=== PATIENT | female | born 1945 | race Caucasian/White ===

== ENCOUNTER → 2018-05-01 | Outpatient (CLI) | payer MEDICARE, OTHER ==
--- NOTE | 2018-05-01 16:43 | BD ---
EXAMINATION TYPE: Axial Bone Density DATE OF EXAM: 05/01/2018 CLINICAL HISTORY: Height: 60.5 Weight: 267 FRAX RISK QUESTIONS: Alcohol (3 or more units per day): no Family History (Parent hip fracture): yes, father Glucocorticoids (More than 3mos): no (Ex: prednisone, prednisolone, methylprednisolone, dexamethasone, and hydrocortisone). History of Fracture in Adulthood: no Secondary Osteoporosis: 1. Type 1 Diabetes: yes 2. Hyperthyroidism: no 3. Menopause before 45: no 4. Malnutrition: no 5. Chronic liver disease: no Rheumatoid Arthritis: no Current Tobacco Use: no RISK FACTORS HISTORY OF: Family History of Osteoporosis: unsure Active: yes Diet low in dairy products/other sources of calcium: about at least one serving a day Postmenopausal woman: yes Take estrogen and/or progesterone medications: no Lost more than 2 inches in height since high school: no Frequent falls: no Poor Health: no Hyperparathyroidism: no Adrenal Insufficiency: no MEDICATIONS: Prednisone or other steroids: no Thyroid Medications: yes Which medication: Levothyroxine How Long: since 2011 Osteoporosis Medications: no Additional Medications: insulin & oral diabetic med.(Actos generic), Vit D, calcium, cholesterol med, blood pressure med Additional History: endometrial CA; thyroid removed due to thyroid CA EXAM MEASUREMENTS: Bone mineral densitometry was performed using the [employer] System. Bone mineral density as measured about the Lumbar spine is: ----- L1-L4(G/cm2): 1.171 T Score Values are as follows: ----- L2: -0.2 ----- L3: 0.0 ----- L4: 0.1 ----- L1-L4: -0.1 Bone mineral density has: Decreased -2.5% since study of: 01/11/2015 Bone mineral density about the R hip (g/cm2): 0.729 Bone mineral density about the L hip (g/cm2): 0.645 T Score values are as follows: -----R Neck: -2.2 -----L Neck: -2.8 -----R Total: -1.7 -----L Total: -1.8 Bone mineral density has: decreased -10.4% since study of: 01/11/2015 IMPRESSION: Osteoporosis (T Score less than -2.5). There is increased fracture risk and therapy is usually indicated based on age. Re-Screen 1-2 years. NOTE: T-SCORE=SD OF THE YOUNG ADULT MEAN.
--- NOTE | 2018-05-04 11:45 | MM ---
Reason for exam: screening (asymptomatic). Last mammogram was performed 1 year and 1 month ago. History: Patient is postmenopausal, has history of other cancer at age 65, and has history of endometrial cancer at age 56. MG 3D Screening Mammo W/Cad Bilateral CC and MLO view(s) were taken. LM view(s) were taken of the left breast. Prior study comparison: March 23, 2017, bilateral MG 3d screening mammo w/cad. February 17, 2016, bilateral MG screening mammo w CAD. There are scattered fibroglandular densities. Left breast lower inner quadrant focal asymmetry appears similar to priors. ASSESSMENT: Benign, BI-RAD 2 RECOMMENDATION: Routine screening mammogram of both breasts in 1 year.
== END | disposition home or self-care (01) ==
LOC: RADMAMWWP 13:53
PROVIDERS: ATTEND Obstetrics & Gynecology
DX: Z12.31 Encounter for screening mammogram for malignant neoplasm of breast (principal); M81.0 Age-related osteoporosis without current pathological fracture
CPT/HCPCS: 77063; 77067; 77080

== ENCOUNTER → 2019-05-30 | Outpatient (CLI) | payer MEDICARE, OTHER ==
--- NOTE | 2019-06-03 09:11 | MM ---
Reason for exam: screening (asymptomatic). Last mammogram was performed 1 year and 1 month ago. History: Patient is postmenopausal, has history of other cancer at age 65, and has history of endometrial cancer at age 56. Physical Findings: A clinical breast exam by your physician is recommended on an annual basis and results should be correlated with mammographic findings. MG 3D Screening Mammo W/Cad Bilateral CC and MLO view(s) were taken. Prior study comparison: May 01, 2018, bilateral MG 3d screening mammo w/cad. March 23, 2017, bilateral MG 3d screening mammo w/cad. There are scattered fibroglandular densities. There is chronic nodularity in the left breast. No significant changes when compared with prior studies. ASSESSMENT: Negative, BI-RAD 1 RECOMMENDATION: Routine screening mammogram of both breasts in 1 year.
== END | disposition home or self-care (01) ==
LOC: RADMAMWWP 16:31
PROVIDERS: ATTEND Obstetrics & Gynecology
DX: Z12.31 Encounter for screening mammogram for malignant neoplasm of breast (principal)
CPT/HCPCS: 77063; 77067

== ENCOUNTER → 2020-07-07 | Outpatient (CLI) | payer MEDICARE, OTHER ==
--- NOTE | 2020-07-08 09:26 | MM ---
Reason for exam: screening (asymptomatic). Last mammogram was performed 1 year and 1 month ago. History: Patient is postmenopausal, has history of other cancer at age 65, and has history of endometrial cancer at age 56. Physical Findings: A clinical breast exam by your physician is recommended on an annual basis and results should be correlated with mammographic findings. MG 3D Screening Mammo W/Cad Bilateral CC and MLO view(s) were taken. Prior study comparison: May 30, 2019, bilateral MG 3d screening mammo w/cad. May 01, 2018, bilateral MG 3d screening mammo w/cad. The breast tissue is heterogeneously dense. This may lower the sensitivity of mammography. No suspicious calcifications are seen. Left breast nodule inner lower quadrant zone B. ASSESSMENT: Incomplete: need additional imaging evaluation, BI-RAD 0 RECOMMENDATION: Special view mammogram and ultrasound of the left breast. [facility] will attempt to contact patient to return for supplemental views and ultrasound.
== END | disposition home or self-care (01) ==
LOC: RADMAMWWP 10:55
PROVIDERS: ATTEND Obstetrics & Gynecology
DX: Z12.31 Encounter for screening mammogram for malignant neoplasm of breast (principal)
CPT/HCPCS: 77063; 77067

== ENCOUNTER → 2020-08-31 | Outpatient (CLI) | payer MEDICARE ==
--- NOTE | 2020-08-31 11:52 | MM ---
Reason for exam: additional evaluation requested from abnormal screening. Last mammogram was performed 2 months ago. History: Patient is postmenopausal, has history of other cancer at age 65, and has history of endometrial cancer at age 56. Physical Findings: Nurse did not find any significant physical abnormalities on exam. MG 3D Work Up W/Cad LT Spot compression CC, spot compression MLO, and LM view(s) were taken of the left breast. Prior study comparison: July 07, 2020, bilateral MG 3d screening mammo w/cad. May 30, 2019, bilateral MG 3d screening mammo w/cad. There are scattered fibroglandular densities. Left 9mm nodule 10 o'clock 3.5cm from nipple. These results were verbally communicated with the patient and result sheet given to the patient on 08/31/20. ASSESSMENT: Incomplete: need additional imaging evaluation, BI-RAD 0 RECOMMENDATION: Ultrasound of the left breast.
--- NOTE | 2020-08-31 11:54 | USB ---
Reason for exam: additional evaluation requested from abnormal screening. History: Patient is postmenopausal, has history of other cancer at age 65, and has history of endometrial cancer at age 56. US Breast Workup Limited LT Technologist: Carly Armas Left limited breast ultrasound including focal area of concern, retroareolar and axilla demonstrates a 0.7 x 0.7 x 0.7cm cystic lesion with internal echoes at 10 o'clock. 7mm complex cyst. Follow up in 6 months. These results were verbally communicated with the patient and result sheet given to the patient on 08/31/20. ASSESSMENT: Probably benign, BI-RAD 3 RECOMMENDATION: Follow-up diagnostic mammogram and ultrasound of the left breast in 6 months.
== END | disposition home or self-care (01) ==
LOC: RADMAMWWP 10:17
PROVIDERS: ATTEND Obstetrics & Gynecology
DX: N64.89 Other specified disorders of breast (principal); N63.22 Unspecified lump in the left breast, upper inner quadrant; N60.02 Solitary cyst of left breast; Z78.0 Asymptomatic menopausal state
CPT/HCPCS: 77065; 76642; G0279; 77061

== ENCOUNTER → 2020-09-14 | Outpatient (CLI) | payer MEDICARE ==
--- NOTE | 2020-09-15 07:54 | BD ---
EXAMINATION TYPE: Axial Bone Density DATE OF EXAM: 09/14/2020 COMPARISON: DEXA bone scan May 01, 2018 CLINICAL HISTORY: Postmenopausal female. Known osteoporosis. Height: 61 Weight: 269.4 FRAX RISK QUESTIONS: Alcohol (3 or more units per day): no Family History (Parent hip fracture): yes Glucocorticoids (More than 3mos): no (Ex: prednisone, prednisolone, methylprednisolone, dexamethasone, and hydrocortisone). History of Fracture in Adulthood: no Secondary Osteoporosis: 1. Type 1 Diabetes: no 2. Hyperthyroidism: no 3. Menopause before 45: no 4. Malnutrition: no 5. Chronic liver disease: no Rheumatoid Arthritis: no Current Tobacco Use: no RISK FACTORS HISTORY OF: Surgery to Spine/Hip(right/left)/Wrist (right/left): no Family History of Osteoporosis: no Active: no Diet low in dairy products/other sources of calcium: yes Postmenopausal woman: yes Lost more than 2 inches in height since high school: no MEDICATIONS: diabetic meds, Thyroid Medications: thyroid How Lon years Additional History: EXAM MEASUREMENTS: Bone mineral densitometry was performed using the [employer]ppler System. Bone mineral density as measured about the Lumbar spine is: ----- L1-L4(G/cm2): 1.184 T Score Values are as follows: ----- L2: -0.4 ----- L3: -0.1 ----- L4: 1.1 ----- L1-L4: 0.0 Bone mineral density has: increased 2.9 % since study of: 05.01.2018 Bone mineral density about the R hip (g/cm2): 0.690 Bone mineral density about the L hip (g/cm2): 0.686 T Score values are as follows: -----R Neck: -2.5 -----L Neck: -2.5 -----R Total: -1.9 -----L Total: -1.7 Bone mineral density has: decreased -1.3 % since study of: 05.01.2018 IMPRESSION: Osteopenia (T Score between -2.5 and -1) is now present. There is slightly increased risk of fracture and the patient may be considered for treatment. Re-Screen 2-5 years. NOTE: T-SCORE=SD OF THE YOUNG ADULT MEAN.
== END | disposition home or self-care (01) ==
LOC: RADBDWWP 11:14
PROVIDERS: ATTEND Obstetrics & Gynecology
DX: Z13.820 Encounter for screening for osteoporosis (principal); M85.89 Other specified disorders of bone density and structure, multiple sites; Z78.0 Asymptomatic menopausal state; Z79.84 Long term (current) use of oral hypoglycemic drugs
CPT/HCPCS: 77080

== ENCOUNTER → 2021-04-07 | Outpatient (CLI) | payer MEDICARE ==
--- NOTE | 2021-04-11 10:29 | MM ---
Reason for exam: follow-up at short interval from prior study. Last mammogram was performed 7 months ago. History: Patient is postmenopausal, has history of other cancer at age 65, and has history of endometrial cancer at age 56. Physical Findings: Nurse did not find any significant physical abnormalities on exam. MG 3D Diag Mammo W/Cad LT CC, MLO, LM, and spot compression MLO view(s) were taken of the left breast. Prior study comparison: August 31, 2020, left breast MG 3d work up w/cad LT. July 07, 2020, bilateral MG 3d screening mammo w/cad. May 30, 2019, bilateral MG 3d screening mammo w/cad. May 01, 2018, bilateral MG 3d screening mammo w/cad. March 23, 2017, bilateral MG 3d screening mammo w/cad. Stable 8mm circumscribed isodense mass 10 o'clock left breast. No significant new findings when compared with previous films. These results were verbally communicated with the patient and result sheet given to the patient on 04/07/21. ASSESSMENT: Incomplete: need additional imaging evaluation, BI-RAD 0 RECOMMENDATION: Ultrasound of the left breast. (10 o'clock)
--- NOTE | 2021-04-11 10:31 | USB ---
Reason for exam: additional evaluation requested from abnormal screening. History: Patient is postmenopausal, has history of other cancer at age 65, and has history of endometrial cancer at age 56. US Breast LT Left limited breast ultrasound including focal area of concern, retroareolar and axilla demonstrates a 0.7 x 0.6 x 0.6cm lesion at 10 o'clock, size is stable. Appears more cystic but interval echoes are redemonstrated. Stable for 6 months, additional follow up recommended. These results were verbally communicated with the patient and result sheet given to the patient on 04/07/21. ASSESSMENT: Probably benign, BI-RAD 3 RECOMMENDATION: Follow-up diagnostic mammogram of both breasts in 3 months. Back on schedule for June 2021.
== END | disposition home or self-care (01) ==
LOC: RADMAMWWP 14:07
PROVIDERS: ATTEND Family Medicine
DX: R92.8 Other abnormal and inconclusive findings on diagnostic imaging of breast (principal)
CPT/HCPCS: 77065; 76641; G0279; 77061

== ENCOUNTER → 2021-09-14 | Outpatient (CLI) | payer MEDICARE ==
--- NOTE | 2021-09-14 13:32 | US ---
EXAMINATION TYPE: US kidneys/renal and bladder DATE OF EXAM: 09/14/2021 COMPARISON: NONE CLINICAL HISTORY: N18.30 CHRONIC KIDENY DISEASE, STAGE 3 UNSPECIFIED. CKD. EXAM MEASUREMENTS: Right Kidney: 10.8 x 4.8 x 4.9 cm Left Kidney: 11.4 x 5.2 x 4.8 cm Exam is limited due to body habitus and gas. Right Kidney: Cortex appears thin. Left Kidney: Hypoechoic area seen surrounding/ adjacent to the kidney shown by arrows. Cortex appea rs thin. Bladder: Not fully distended, limited evaluation. Bilateral Jets seen: Yes IMPRESSION: 1. Bilateral renal cortical thinning compatible with chronic medical renal disease. Small amount of f luid in the subcapsular space of the left kidney is suggested and could be correlated with CT scan as clinically warranted.
[2021-09-14 18:06] LABS: African American GFR (CKD) 45.7 (60.0-200.0); Albumin 3.8 g/dL (3.8-4.9); Albumin/Globulin Ratio 1.29 (1.60-3.17); BUN/Creat Ratio 17.02 Ratio (12.00-20.00); Blood Urea Nitrogen 22.3 mg/dL (9.0-27.0); Calcium 9.3 mg/dL (8.7-10.3); Carbon Dioxide 25.6 mmol/L (20.0-27.5); Globulin 2.9 g/dL (1.6-3.3); Non-African American GFR(CKD) 39.5 (60.0-200.0); Phosphorus 3.7 mg/dL (2.4-5.1); Potassium 5.4 mmol/L (3.5-5.5); Total Bilirubin 0.5 mg/dL (0.30-1.20); Total Protein 6.7 g/dL (6.2-8.2)
[2021-09-14 18:11] LABS: HCT 39.3 % (37.2-46.3); HGB 11.2 g/dL (12.0-15.0); MCH 24.1 pg (27.0-32.0); MCHC 28.5 g/dL (32.0-37.0); MCV 84.5 fL (80.0-97.0); Mean Platelet Volume 10.8 fL (9.5-12.2); NRBC Per 100 WBC 0 /100 WBCS (0.0-0.0); Platelet Count 204 X 10*3/uL (140-440); RBC 4.65 X 10*6/uL (4.10-5.20); RDW 17.1 % (11.5-14.5); WBC 7.45 X 10*3/uL (4.50-10.00)
== END | disposition home or self-care (01) ==
LOC: RADUSWWP 12:40
PROVIDERS: ATTEND Family Medicine
DX: N18.30 Chronic kidney disease, stage 3 unspecified (principal)
CPT/HCPCS: 76770; 80053; 84100; 85027

== ENCOUNTER → 2022-07-21 | Outpatient (CLI) | payer MEDICARE ==
--- NOTE | 2022-07-24 15:32 | MM ---
Reason for Exam: Screening (asymptomatic). Last screening mammogram was performed 12 month(s) ago. Patient History: Menarche at age 10. First Full-Term at age 24. Left ovary removed at age 56. Right ovary removed at age 56. Hysterectomy at age 56. Postmenopausal. Endometrial cancer, age 56. Other cancer, age 65. Risk Values: Mar[place]ell 5 year model risk: 1.7%. NCI Lifetime model risk: 3.3%. Prior Study Comparison: 08/31/2020 Left Diagnostic Mammogram, [facility]. 04/07/2021 Left Diagnostic Mammogram, [facility]. 07/20/2021 Bilateral Diagnostic Mammogram, [facility]. Tissue Density: There are scattered fibroglandular densities. Findings: Analyzed By CAD. There is no suspicious group of microcalcifications or new suspicious mass in either breast. Overall Assessment: Negative, BI-RAD 1 Management: Screening Mammogram of both breasts in 1 year. A clinical breast exam by your physician is recommended on an annual basis and results should be correlated with mammographic findings. Electronically signed and approved by: Austin Rivas M.D. Radiologis
== END | disposition home or self-care (01) ==
LOC: RADMAMWWP 13:07
PROVIDERS: ATTEND Obstetrics & Gynecology
DX: Z12.31 Encounter for screening mammogram for malignant neoplasm of breast (principal); Z78.0 Asymptomatic menopausal state
CPT/HCPCS: 77063; 77067

== ENCOUNTER 2023-04-19 10:45 | Inpatient (IN) | payer MEDICARE ==
--- NOTE | 2023-04-19 11:13 | ED ---
SOB HPI - General Stated Complaint: sob Time Seen by Provider: 04/19/23 11:13 - History of Present Illness Initial Comments: The patient's a 78-year-old female with history of hypertension and hyperlipidemia who presents emergency room a completely cough or shortness breath for the last 4 days. Patient states that she has rib pain with coughing and becomes extremely short of breath with immunization. Her is being seen for similar symptoms. She denies any hemoptysis. Patient is a nonsmoker denies any history of asthma or COPD. patient has missed multiple doses of her home medications over the last few days. Patient is hypoxic at 88% on room air in triage. She denies chest pain or hemoptysis. - Related Data Home Medications Medication Instructions Recorded Confirmed Meclizine [Antivert] 12.5 mg PO Q6H PRN 04/08/15 04/19/23 [place]-3 Fatty Acids/Fish Oil [Fish 2 cap PO HS 04/08/15 04/19/23 Oil 1,000 mg Softgel] Omeprazole [PriLOSEC] 20 mg PO DAILY 04/08/15 04/19/23 glipiZIDE [Glucotrol] 2.5 mg PO BID 04/08/15 04/19/23 Calcium Carbonate [Calcium] 600 mg PO HS 04/19/23 04/19/23 Cranberry Fruit Concentrate [Azo 500 mg PO HS 04/19/23 04/19/23 Cranberry] Ezetimibe [Zetia] 10 mg PO DAILY 04/19/23 04/19/23 Insulin Glargine,Hum.rec.anlog 20 units SQ HS 04/19/23 04/19/23 [Lantus Solostar Pen] Levothyroxine Sodium [Synthroid] 112 mcg PO DAILY 04/19/23 04/19/23 Liothyronine Sodium [Cytomel] 5 mcg PO DAILY 04/19/23 04/19/23 Pioglitazone [Actos] 15 mg PO DAILY 04/19/23 04/19/23 lisinopriL [Zestril] 5 mg PO DAILY 04/19/23 04/19/23 Allergies Allergy/AdvReac Type Severity Reaction Status Date / Time cholecalciferol (vitamin D3) Allergy Unknown Verified 04/19/23 16:49 [From Vitamin D3] midazolam HCl [From Versed] Allergy Unknown Verified 04/19/23 16:49 exenatide [From [place]etta] AdvReac shaking Verified 04/19/23 16:49 phenazopyridine HCl AdvReac Nausea Verified 04/19/23 16:49 [From Pyridium] pioglitazone HCl [From Actos] AdvReac Nausea Verified 04/19/23 16:49 sitagliptin phosphate AdvReac high blood Verified 04/19/23 16:49 [From Januvia] pressure sulfamethoxazole AdvReac Nausea Verified 04/19/23 16:49 [From Bactrim] trimethoprim [From Bactrim] AdvReac Nausea Verified 04/19/23 16:49 Review of Systems ROS Statement: Those systems with pertinent positive or pertinent negative responses have been documented in the HPI. ROS Other: All systems not noted in ROS Statement are negative. Past Medical History Past Medical History: Diabetes Mellitus, GERD/Reflux, Hypertension, Thyroid Disorder Additional Past Medical History / Comment(s): UTI History of Any Multi-Drug Resistant Organisms: None Reported Past Surgical History: Cholecystectomy, Hysterectomy Additional Past Surgical History / Comment(s): thyroidectomy Past Psychological History: No Psychological Hx Reported Past Alcohol Use History: None Reported Past Drug Use History: None Reported General Exam - General Exam Comments Initial Comments: Visual Physical Exam Vital signs reviewed General: Well-appearing, nontoxic, no acute distress. Head: Normocephalic, atraumatic Eyes: PERRLA, EOMI ENT: Airway patent a congestion noted Chest: Nonlabored breathin . Skin: No visual rash, normal skin tone Neuro: Alert and oriented 3 Musculoskeletal: No gross abnormalities Limitations: no limitations General appearance: alert, in no apparent distress Head exam: Present: atraumatic Eye exam: Present: normal appearance, PERRL ENT exam: Present: normal exam, normal oropharynx, mucous membranes moist Neck exam: Present: normal inspection, full ROM, other (No nuchal rigidity) Respiratory exam: Present: respiratory distress, wheezes Cardiovascular Exam: Present: regular rate, normal rhythm Extremities exam: Present: full ROM Back exam: Present: full ROM Neurological exam: Present: alert, oriented X3, CN II-XII intact Psychiatric exam: Present: normal affect, normal mood Skin exam: Present: warm, dry Course Vital Signs 04/19/23 04/19/23 04/19/23 12:27 14:50 15:01 Temperature Pulse Rate 88 88 85 Respiratory 20 22 Rate Blood Pressure 205/79 183/71 O2 Sat by Pulse 89 L 100 Oximetry 04/19/23 04/19/23 15:12 18:28 Temperature 98.8 F Pulse Rate 89 100 Respiratory 24 Rate Blood Pressure 164/71 O2 Sat by Pulse 93 L Oximetry - Reevaluation(s) Reevaluation #1: 04/19/23 1640 Patient received albuterol DuoNeb treatment in the emergency room as well as Decadron. After breathing treatments and monitoring the patient was taken off it the nasal cannula. At that time she slowly decreased to 89% on room air while sitting in the stretcher. I discussed admission plan at that time with the patient for further breathing treatments and steroids. She agrees to this plan. I discussed patient's symptoms are And management with attending ED physician Dr. Shane today. Medical Decision Making - Medical Decision Making Quick note portion completed by myself, Leela Arevalo PAC. Was pt. sent in by a medical professional or institution (, PA, CURING FINISHER, urgent care, hospital, or alf...) When possible be specific @ -[No] Did you speak to anyone other than the patient for history (EMS, parent, family, police, friend...)? What history was obtained from this source @ -Daughter and family members at the bedside including Did you review nursing and triage notes (agree or disagree)? Why? @ -[I reviewed and agree with nursing and triage notes] Were old charts reviewed (outside hosp., previous admission, EMS record, old EKG, old radiological studies, urgent care reports/EKG's, alf records)? Report findings @ -[No old charts were reviewed] Differential Diagnosis (chest pain, altered mental status, abdominal pain women, abdominal pain men, vaginal bleeding, weakness, fever, dyspnea, syncope, headache, dizziness, GI bleed, back pain, seizure, CVA, palpatations, mental health, musculoskeletal)? @ -COVID-19, influenza, RSV, pneumonia, URI, CHF EKG interpreted by me (3pts min.). @ -Shows possible A. fib versus PACs rate of 84 bpm, poor EKG, no acute ST segment elevation X-rays interpreted by me (1pt min.). @ -Chest x-ray is negative for any pneumonia pneumothorax or other acute changes. CT interpreted by me (1pt min.). @ -[None done] U/S interpreted by me (1pt. min.). @ -[None done] What testing was considered but not performed or refused? (CT, X-rays, U/S, labs)? Why? @ -[None] What meds were considered but not given or refused? Why? @ -[None] Did you discuss the management of the patient with other professionals (professionals i.e. DrBrooklynn, PA, CURING FINISHER, lab, RT, psych nurse, social human services assistants, unit educator, teacher, budget officer, pillowcase maker)? Give summary @ -[No] Was smoking cessation discussed for >3mins.? @ -[No] Was critical care preformed (if so, how long)? @ -[No] Were there social determinants of health that impacted care today? How? (Homelessness, low income, unemployed, alcoholism, drug addiction, transportation, low edu. Level, literacy, decrease access to med. care, halfway, rehab)? @ -[No] Was there de-escalation of care discussed even if they declined (Discuss DNR or withdrawal of care, Hospice)? DNR status @ -[No] What co-morbidities impacted this encounter? (DM, HTN, Smoking, COPD, CAD, Cancer, CVA, ARF, Chemo, Hep., AIDS, mental health diagnosis, sleep apnea, morbid obesity)? @ -[None] Was patient admitted / discharged? Hospital course, mention meds given and route, prescriptions, significant lab abnormalities, going to OR and other pertinent info. @Patient remained hypoxic after multiple breathing treatments and steroids. She will be admitted for further treatment and observation for the hypoxia and RSV. Undiagnosed new problem with uncertain prognosis? @ -[No] Drug Therapy requiring intensive monitoring for toxicity (Heparin, Nitro, Insulin, Cardizem)? @ -[No] Were any procedures done? @ -[No] Diagnosis/symptom? @ -RSV, hypoxia Acute, or Chronic, or Acute on Chronic? @ -[Acute Uncomplicated (without systemic symptoms) or Complicated (systemic symptoms)? @ -[default] Side effects of treatment? @ -[No] Exacerbation, Progression, or Severe Exacerbation? @ -[No] Poses a threat to life or bodily function? How? (Chest pain, USA, PA, pneumonia, PE, COPD, DKA, ARF, appy, cholecystitis, CVA, Diverticulitis, Homicidal, Suicidal, threat to staff... and all critical care pts) @ -yes - Lab Data Result diagrams: 04/19/23 13:56 04/19/23 13:56 Lab Results 04/19/23 04/19/23 04/19/23 Range/Units 12:33 12:33 13:56 WBC 9.6 (3.8-10.6) k/uL RBC 4.58 (3.80-5.40) m/uL Hgb 12.2 (11.4-16.0) gm/dL Hct 38.7 (34.0-46.0) % MCV 84.5 (80.0-100.0) fL MCH 26.6 (25.0-35.0) pg MCHC 31.4 (31.0-37.0) g/dL RDW 17.1 H (11.5-15.5) % Plt Count 191 (150-450) k/uL MPV 8.1 Neutrophils % 86 % Lymphocytes % 6 % Monocytes % 4 % Eosinophils % 0 % Basophils % 0 % Neutrophils # 8.3 H (1.3-7.7) k/uL Lymphocytes # 0.6 L (1.0-4.8) k/uL Monocytes # 0.4 (0-1.0) k/uL Eosinophils # 0.0 (0-0.7) k/uL Basophils # 0.0 (0-0.2) k/uL Hypochromasia Marked Anisocytosis Slight Sodium (137-145) mmol/L Potassium (3.5-5.1) mmol/L Chloride (98-107) mmol/L Carbon Dioxide (22-30) mmol/L Anion Gap mmol/L BUN (7-17) mg/dL Creatinine (0.52-1.04) mg/dL Est GFR (CKD-EPI)AfAm (>60 ml/min/1.73 sqM) Est GFR (CKD-EPI)NonAf (>60 ml/min/1.73 sqM) Glucose (74-99) mg/dL Calcium (8.4-10.2) mg/dL Total Bilirubin (0.2-1.3) mg/dL AST (14-36) U/L ALT (4-34) U/L Alkaline Phosphatase (38-126) U/L Troponin I (0.000-0.034) ng/mL NT-Pro-B Natriuret Pep pg/mL Total Protein (6.3-8.2) g/dL Albumin (3.5-5.0) g/dL Influenza Type A (PCR) Not Detected (Not Detectd) Influenza Type B (PCR) Not Detected (Not Detectd) RSV (PCR) Detected A (Not Detectd) SARS-CoV-2 (PCR) Not Detected (Not Detectd) Group A Strep (PCR) NOT DETECTED (Not Detectd) 04/19/23 04/19/23 04/19/23 Range/Units 13:56 13:56 13:56 WBC (3.8-10.6) k/uL RBC (3.80-5.40) m/uL Hgb (11.4-16.0) gm/dL Hct (34.0-46.0) % MCV (80.0-100.0) fL MCH (25.0-35.0) pg MCHC (31.0-37.0) g/dL RDW (11.5-15.5) % Plt Count (150-450) k/uL MPV Neutrophils % % Lymphocytes % % Monocytes % % Eosinophils % % Basophils % % Neutrophils # (1.3-7.7) k/uL Lymphocytes # (1.0-4.8) k/uL Monocytes # (0-1.0) k/uL Eosinophils # (0-0.7) k/uL Basophils # (0-0.2) k/uL Hypochromasia Anisocytosis Sodium 138 (137-145) mmol/L Potassium 4.6 (3.5-5.1) mmol/L Chloride 102 (98-107) mmol/L Carbon Dioxide 23 (22-30) mmol/L Anion Gap 13 mmol/L BUN 19 H (7-17) mg/dL Creatinine 1.07 H (0.52-1.04) mg/dL Est GFR (CKD-EPI)AfAm 58 (>60 ml/min/1.73 sqM) Est GFR (CKD-EPI)NonAf 50 (>60 ml/min/1.73 sqM) Glucose 135 H (74-99) mg/dL Calcium 9.3 (8.4-10.2) mg/dL Total Bilirubin 1.1 (0.2-1.3) mg/dL AST 28 (14-36) U/L ALT 16 (4-34) U/L Alkaline Phosphatase 103 (38-126) U/L Troponin I 0.019 (0.000-0.034) ng/mL NT-Pro-B Natriuret Pep 4820 pg/mL Total Protein 7.6 (6.3-8.2) g/dL Albumin 4.2 (3.5-5.0) g/dL Influenza Type A (PCR) (Not Detectd) Influenza Type B (PCR) (Not Detectd) RSV (PCR) (Not Detectd) SARS-CoV-2 (PCR) (Not Detectd) Group A Strep (PCR) (Not Detectd) - EKG Data -: EKG Interpreted by Me - Radiology Data Radiology results: report reviewed, image reviewed Disposition Clinical Impression: Hypoxia, RSV (respiratory syncytial virus infection) Disposition: ADMITTED IP TO THIS [facility] Condition: Fair Decision to Admit Reason: Admit from EC Decision Time: 16:47
--- NOTE | 2023-04-19 12:04 | XR ---
EXAMINATION TYPE: XR chest 2V DATE OF EXAM: 04/19/2023 COMPARISON: Shortness of breath HISTORY: Chest x-ray October 31, 2015 TECHNIQUE: Frontal and lateral views of the chest are obtained. FINDINGS: There is new Left midlung linear opacity. Right lung is clear. No pleural effusion or pneu mothorax is seen bilaterally. The cardiac silhouette size is stable and within normal limits. The osseous structures are intact. IMPRESSION: New left midlung linear opacity favoring atelectasis.
[2023-04-19] MEDS ORDERED: ALBUTEROL NEBULIZED 2.5 MG/3 ML INHALATION STA (13:34)
[2023-04-19] MEDS ORDERED: IPRATROPIUM-ALBUTEROL 3 ML NEB INHALATION STA (13:53)
[2023-04-19] MEDS ORDERED: DEXAMETHASONE SOD PHOSPHATE 10 MG/ML 1 ML VIAL IM STA (13:53)
[2023-04-19 14:10] LABS: Anisocytosis Slight; Basophils % (A) 0 %; Eosinophils % (A) 0 %; HCT 38.7 % (34.0-46.0); HGB 12.2 gm/dL (11.4-16.0); Hypochromasia Marked; Lymphocytes # (A) 0.6 k/uL (1.0-4.8); Lymphocytes % (A) 6 %; MCH 26.6 pg (25.0-35.0); MCHC 31.4 g/dL (31.0-37.0); MCV 84.5 fL (80.0-100.0); Mean Platelet Volume 8.1; Monocytes # (A) 0.4 k/uL (0-1.0); Monocytes % (A) 4 %; Neutrophils # (A) 8.3 k/uL (1.3-7.7); Neutrophils % (A) 86 %; Platelet Count 191 k/uL (150-450); RBC 4.58 m/uL (3.80-5.40); RDW 17.1 % (11.5-15.5); WBC 9.6 k/uL (3.8-10.6)
[2023-04-19 14:18] LABS: ALT 16 U/L (4-34); AST 28 U/L (14-36); African American GFR (CKD) 58 (>60 ml/min/1.73 sqM); Albumin 4.2 g/dL (3.5-5.0); Alkaline Phosphatase 103 U/L (38-126); Anion Gap 13 mmol/L; Blood Urea Nitrogen 19 mg/dL (7-17); Calcium 9.3 mg/dL (8.4-10.2); Carbon Dioxide 23 mmol/L (22-30); Chloride 102 mmol/L (98-107); Glucose 135 mg/dL (74-99); Non-African American GFR(CKD) 50 (>60 ml/min/1.73 sqM); Potassium 4.6 mmol/L (3.5-5.1); Sodium 138 mmol/L (137-145); Total Bilirubin 1.1 mg/dL (0.2-1.3); Total Protein 7.6 g/dL (6.3-8.2)
[2023-04-19] MEDS ORDERED: SODIUM CHLORIDE 0.9% 500 ML 500 ML IV STA (15:02)
[2023-04-19] MEDS ORDERED: NALOXONE 0.4 MG/ML 1 ML VIAL IV PRN (16:27)
[2023-04-19] MEDS ORDERED: ALBUTEROL NEBULIZED 2.5 MG/3 ML INHALATION SCH (16:45)
[2023-04-19] MEDS: SODIUM CHLORIDE 0.9% 1,000 ML IV SCH ×2 (17:15→23:44)
[2023-04-19] MEDS ORDERED: methylPREDNISolone SOD SUCCI 125 MG/2 ML VIAL IV SCH ×2 (18:00→21:00)
[2023-04-19] MEDS ORDERED: DEXTROSE 50% SYRINGE 50 ML IVP PRN ×2 (20:22)
--- NOTE | 2023-04-19 20:25 | P.HPIM ---
History of Present Illness H&P Date: 04/19/23 Chief Complaint: Short of breath This is a pleasant 78-year-old patient follows a Dr. Eaton. Chronic stable medical conditions include diabetes, GERD, hypertension, hypothyroid. For about 4 days patient has started having respiratory symptoms. Tired. Cough. Yellow sputum. No dizziness lightheadedness. No diarrhea. No obvious fever and chills. also had some dyspnea symptoms. Decided to come in. Pulse ox was 89% on room air upon presentation. Tired Sitting up in a chair. Review of systems: GEN.: Tired EYES: None HEENT: None NECK: None RESPIRATORY: As above CARDIOVASCULAR: None GASTROINTESTINAL: None GENITOURINARY: None MUSCULOSKELETAL: None LYMPHATICS: None HEMATOLOGICAL: None PSYCHIATRY: None NEUROLOGICAL: None Social history: No smoking and no alcohol. Lives with her and other family members. Physical examination: VITAL SIGNS: Afebrile, 88, 20, 183/71, 89% room air GENERAL: BMI 49.9, sitting up in chair awake slightly tired. EYES: Pupils equal. Conjunctiva normal. HEENT: External appearance of nose and ears normal, oral cavity grossly normal. NECK: JVD not raised; masses not palpable. HEART: First and second heart sounds are normal; no edema. LUNGS:[ Respiratory rate increased, decreased breath sounds. ABDOMEN: Soft, nontender, liver spleen not palpable, no masses palpable. PSYCH: Alert and oriented x3; mood and affect normal. MUSCULOSKELETAL:No Clubbing/cyanosis;muscles-grossly intact. OA NEUROLOGICAL: Cranial nerves grossly intact; no facial asymmetry, power and sensation grossly intact. LYMPHATICS: No lymph nodes palpable in the axilla and neck INVESTIGATIONS, reviewed in the clinical context: April 19: White count 9.6 hemoglobin 12.2 platelets 191 sodium 138 potassium 4.6 BUN 19 creatinine 1.07 Troponin I 0.019 proBNP 4820 RSV PCR: Detected EKG tracing personally reviewed by me-possibly wandering atrial pacemaker Chest x-ray film personally reviewed by me-no obvious infiltrate Assessment plan: -Acute RSV r infection causing possible pneumonitis, causing hypoxia -Acute hypoxic respiratory failure secondary to RSV infection Oxygen supplement -Morbid obesity BMI 49.9 Weight loss measures -GERD Prilosec -Diabetes mellitus type 2 on oral hypoglycemic Glucotrol 2.5 mg twice a day Actos Lantus 20 units subcu daily at bedtime Sliding scale with Accu-Chek -Hyperlipidemia Zetia -Essential hypertension Zestril 5 mg daily -full Code Past Medical History Past Medical History: Diabetes Mellitus, GERD/Reflux, Hypertension, Thyroid Dis order Additional Past Medical History / Comment(s): UTI History of Any Multi-Drug Resistant Organisms: None Reported Past Surgical History: Cholecystectomy, Hysterectomy Additional Past Surgical History / Comment(s): thyroidectomy Past Psychological History: No Psychological Hx Reported Past Alcohol Use History: None Reported Past Drug Use History: None Reported Medications and Allergies Home Medications Medication Instructions Recorded Confirmed Type Meclizine [Antivert] 12.5 mg PO Q6H PRN 04/08/15 04/19/23 History [place]-3 Fatty Acids/Fish Oil [Fish 2 cap PO HS 04/08/15 04/19/23 History Oil 1,000 mg Softgel] Omeprazole [PriLOSEC] 20 mg PO DAILY 04/08/15 04/19/23 History glipiZIDE [Glucotrol] 2.5 mg PO BID 04/08/15 04/19/23 History Calcium Carbonate [Calcium] 600 mg PO HS 04/19/23 04/19/23 History Cranberry Fruit Concentrate [Azo 500 mg PO HS 04/19/23 04/19/23 History Cranberry] Ezetimibe [Zetia] 10 mg PO DAILY 04/19/23 04/19/23 History Insulin Glargine,Hum.rec.anlog 20 units SQ HS 04/19/23 04/19/23 History [Lantus Solostar Pen] Levothyroxine Sodium [Synthroid] 112 mcg PO DAILY 04/19/23 04/19/23 History Liothyronine Sodium [Cytomel] 5 mcg PO DAILY 04/19/23 04/19/23 History Pioglitazone [Actos] 15 mg PO DAILY 04/19/23 04/19/23 History lisinopriL [Zestril] 5 mg PO DAILY 04/19/23 04/19/23 History Allergies Allergy/AdvReac Type Severity Reaction Status Date / Time cholecalciferol (vitamin D3) Allergy Unknown Verified 04/19/23 16:49 [From Vitamin D3] midazolam HCl [From Versed] Allergy Unknown Verified 04/19/23 16:49 exenatide [From [place]] AdvReac shaking Verified 04/19/23 16:49 phenazopyridine HCl AdvReac Nausea Verified 04/19/23 16:49 [From Pyridium] pioglitazone HCl [From Actos] AdvReac Nausea Verified 04/19/23 16:49 sitagliptin phosphate AdvReac high blood Verified 04/19/23 16:49 [From Januvia] pressure sulfamethoxazole AdvReac Nausea Verified 04/19/23 16:49 [From Bactrim] trimethoprim [From Bactrim] AdvReac Nausea Verified 04/19/23 16:49 Physical Exam Vitals: Vital Signs Temp Pulse Resp BP Pulse Ox 04/19/23 18:28 98.8 F 100 24 164/71 93 L 04/19/23 15:12 89 04/19/23 15:01 85 22 183/71 100 04/19/23 14:50 88 04/19/23 12:27 88 20 205/79 89 L Intake and Output 04/19/23 04/19/23 04/19/23 06:59 14:59 22:59 Other: Weight 119.748 kg Results CBC & Chem 7: 04/19/23 13:56 04/19/23 13:56 Labs: Abnormal Lab Results - Last 24 Hours (Table) 04/19/23 04/19/23 04/19/23 Range/Units 12:33 13:56 13:56 RDW 17.1 H (11.5-15.5) % Neutrophils # 8.3 H (1.3-7.7) k/uL Lymphocytes # 0.6 L (1.0-4.8) k/uL BUN 19 H (7-17) mg/dL Creatinine 1.07 H (0.52-1.04) mg/dL Glucose 135 H (74-99) mg/dL RSV (PCR) Detected A (Not Detectd)
[2023-04-19 20:52] LABS: Glucose,Whole Blood 318 mg/dL (70-110)
[2023-04-19] MEDS: IPRATROPIUM-ALBUTEROL 3 ML NEB INHALATION SCH (21:00)
[2023-04-19] MEDS: BUDESONIDE 1 MG/2 ML NEBU INHALATION SCH (21:00)
[2023-04-19] MEDS: CALCIUM CARBONATE 500 MG CHEWABLE PO SCH (21:19)
[2023-04-19] MEDS: INSULIN DETEMIR (LEVEMIR) 100 UNIT/ML SYR SQ SCH (21:20)
[2023-04-19] MEDS: ENOXAPARIN 40 MG/0.4 ML SYRINGE SQ SCH (21:20)
[2023-04-19] MEDS: methylPREDNISolone SOD SUCCI 40 MG/ML 1 ML VIAL IV SCH (23:44)
[2023-04-20] MEDS: IPRATROPIUM-ALBUTEROL 3 ML NEB INHALATION SCH ×6 (00:18→21:04)
[2023-04-20 05:19] LABS: Glucose,Whole Blood 235 mg/dL (70-110)
[2023-04-20] MEDS: LEVOTHYROXINE 112 MCG TAB PO SCH (06:26)
[2023-04-20] MEDS: INSULIN ASPART (NovoLOG) 100 UNIT/ML VIAL SQ SCH ×3 (06:26→18:07)
[2023-04-20] MEDS: PANTOPRAZOLE 40 MG TABLET PO SCH (06:26)
[2023-04-20] MEDS: SODIUM CHLORIDE 0.9% 1,000 ML IV SCH ×3 (06:26→23:36)
[2023-04-20] MEDS: BUDESONIDE 1 MG/2 ML NEBU INHALATION SCH ×2 (08:40→21:03)
[2023-04-20] MEDS: LIOTHYRONINE SODIUM 5 MCG TAB PO SCH (09:09)
[2023-04-20] MEDS: PIOGLITAZONE 15 MG TAB PO SCH (09:09)
[2023-04-20] MEDS: EZETIMIBE 10 MG TAB PO SCH (09:09)
[2023-04-20] MEDS: methylPREDNISolone SOD SUCCI 40 MG/ML 1 ML VIAL IV SCH ×3 (09:09→23:33)
[2023-04-20] MEDS: lisinopriL 5 MG TAB PO SCH (09:09)
[2023-04-20 10:54] LABS: HCT 36.7 % (37.2-46.3); MCH 25.9 pg (27.0-32.0); MCV 86.6 FL (80.0-97.0); Mean Platelet Volume 10.7 FL (9.5-12.2); NRBC Per 100 WBC 0 X 10*3/uL (0.00-0.01); Platelet Count 194 X 10*3/uL (140-440); RBC 4.24 X 10*6/uL (4.10-5.20); RDW 17.3 % (11.5-14.5); WBC 7.06 X 10*3/uL (4.50-10.00)
[2023-04-20 10:55] LABS: Basophils # (A) 0 X 10*3/uL (0.00-0.10); Basophils % (A) 0 %; Eosinophils # (A) 0 X 10*3/uL (0.04-0.35); Eosinophils % (A) 0 %; Lymphocytes # (A) 0.51 X 10*3/uL (0.90-5.00); Lymphocytes % (A) 7.2 %; Monocytes # (A) 0.26 X 10*3/uL (0.20-1.00); Monocytes % (A) 3.7 %; Neutrophils # (A) 6.25 X 10*3/uL (1.80-7.70); Neutrophils % (A) 88.5 %
[2023-04-20 11:04] LABS: BUN/Creat Ratio 18.92 Ratio (12.00-20.00); Blood Urea Nitrogen 24.6 mg/dL (9.0-27.0); Carbon Dioxide 18.9 mmol/L (21.6-31.8); Chloride 105 mmol/L (96-109); Glucose 255 mg/dL (70-110); Potassium 4.6 mmol/L (3.5-5.5); Sodium 138 mmol/L (135-145)
[2023-04-20 11:05] LABS: Glucose,Whole Blood 226 mg/dL (70-110)
--- NOTE | 2023-04-20 16:40 | P.PN ---
Progress Note - Text Progress Note Date: 04/20/23 Chief Complaint: Short of breath This is a pleasant 78-year-old patient follows a Dr. Eaton. Chronic stable medical conditions include diabetes, GERD, hypertension, hypothyroid. For about 4 days patient has started having respiratory symptoms. Tired. Cough. Yellow sputum. No dizziness lightheadedness. No diarrhea. No obvious fever and chills. also had some dyspnea symptoms. Decided to come in. Pulse ox was 89% on room air upon presentation. Tired Sitting up in a chair. 04/20/2023: Up in a chair. Some cough and shortness of breath. Some wheezing. Incentive spirometry. Have the patient ambulate in the room as tolerated. Active Medications Albuterol/Ipratropium (Ipratropium-Albuterol 3 Ml Neb) 3 ml INHALATION RT-Q4H [facility] Last Admin: 04/20/23 16:07 Dose: 3 ml Budesonide (Budesonide 1 Mg/2 Ml Nebu) 1 mg INHALATION RT-BID [facility] Last Admin: 04/20/23 08:40 Dose: 1 mg Calcium Carbonate/Glycine (Calcium Carbonate 500 Mg Chewable) 500 mg PO [facility] Last Admin: 04/19/23 21:19 Dose: 500 mg Dextrose/Water (Dextrose 50% Syringe 50 Ml) 25 ml IVP PER PROTOCOL PRN; Protocol PRN Reason: Hypoglycemia Dextrose/Water (Dextrose 50% Syringe 50 Ml) 50 ml IVP PER PROTOCOL PRN; Protocol PRN Reason: Hypoglycemia Ezetimibe (Ezetimibe 10 Mg Tab) 10 mg PO DAILY [facility] Last Admin: 04/20/23 09:09 Dose: 10 mg Enoxaparin Sodium (Enoxaparin 40 Mg/0.4 Ml Syringe) 40 mg SQ [facility] Last Admin: 04/19/23 21:20 Dose: 40 mg Glipizide (Glipizide 2.5 Mg Tab) 2.5 mg PO AC-BID [facility] Last Admin: 04/20/23 06:26 Dose: 2.5 mg Sodium Chloride (Saline 0.9%) 1,000 mls @ 130 mls/hr IV .Q7H42M [facility] Last Admin: 04/20/23 06:26 Dose: 130 mls/hr Insulin Aspart (Insulin Aspart (Novolog) 100 Unit/Ml Vial) 0 unit SQ AC-TID [facility]; Protocol Last Admin: 04/20/23 12:36 Dose: 4 unit Insulin Detemir (Insulin Detemir (Levemir) 100 Unit/Ml Syr) 20 unit SQ HS [facility] Last Admin: 04/19/23 21:20 Dose: 20 unit Levothyroxine Sodium (Levothyroxine 112 Mcg Tab) 112 mcg PO DAILY@0630 [facility] Last Admin: 04/20/23 06:26 Dose: 112 mcg Liothyronine Sodium (Liothyronine Sodium 5 Mcg Tab) 5 mcg PO DAILY [facility] Last Admin: 04/20/23 09:09 Dose: 5 mcg Lisinopril (Lisinopril 5 Mg Tab) 5 mg PO DAILY [facility] Last Admin: 04/20/23 09:09 Dose: 5 mg Methylprednisolone Sodium Succinate (Methylprednisolone Sod Succi 40 Mg/Ml 1 Ml Vial) 40 mg IV Q8HR [facility] Last Admin: 04/20/23 09:09 Dose: 40 mg Naloxone HCl (Naloxone 0.4 Mg/Ml 1 Ml Vial) 0.2 mg IV Q2M PRN PRN Reason: Opioid Reversal Pantoprazole Sodium (Pantoprazole 40 Mg Tablet) 40 mg PO AC-BRKFST [facility] Last Admin: 04/20/23 06:26 Dose: 40 mg Pioglitazone HCl (Pioglitazone 15 Mg Tab) 15 mg PO DAILY [facility] Last Admin: 04/20/23 09:09 Dose: 15 mg Social history: No smoking and no alcohol. Lives with her and other family members. Physical examination: VITAL SIGNS: 97.7, 77, 19, 144-73, 94% on 3 L GENERAL: Up in a chair, a bit tired EYES: Pupils equal. Conjunctiva normal. HEENT: External appearance of nose and ears normal, oral cavity grossly normal. NECK: JVD not raised; masses not palpable. HEART: First and second heart sounds are normal; no edema. LUNGS:[ Respiratory rate increased, decreased breath sounds. ABDOMEN: Soft, nontender, liver spleen not palpable, no masses palpable. PSYCH: Alert and oriented x3; mood and affect normal. MUSCULOSKELETAL:No Clubbing/cyanosis;muscles-grossly intact. OA INVESTIGATIONS, reviewed in the clinical context: 04/20/2023: White count 7.06 hemoglobin 11 platelets 194 potassium 4.6 BUN 24.6 creatinine 1.3 April 19: White count 9.6 hemoglobin 12.2 platelets 191 sodium 138 potassium 4.6 BUN 19 creatinine 1.07 Troponin I 0.019 proBNP 4820 RSV PCR: Detected EKG tracing personally reviewed by me-possibly wandering atrial pacemaker Chest x-ray film personally reviewed by me-no obvious infiltrate Assessment plan: -Acute RSV r infection causing possible pneumonitis, causing hypoxia -Secondary bronchospasm secondary to RSV infection and pneumonitis Bronchodilators. IV Solu-Medrol. -Acute hypoxic respiratory failure secondary to RSV infection Oxygen supplement -Morbid obesity BMI 49.9 Weight loss measures -GERD Prilosec -Diabetes mellitus type 2 on oral hypoglycemic Glucotrol 2.5 mg twice a day Actos Lantus 20 units subcu daily at bedtime Sliding scale with Accu-Chek -Hyperlipidemia Zetia -Essential hypertension Zestril 5 mg daily -full Code Past Medical History Past Medical History: Diabetes Mellitus, GERD/Reflux, Hypertension, Thyroid Disorder Additional Past Medical History / Comment(s): UTI History of Any Multi-Drug Resistant Organisms: None Reported Past Surgical History: Cholecystectomy, Hysterectomy Additional Past Surgical History / Comment(s): thyroidectomy Past Psychological History: No Psychological Hx Reported Past Alcohol Use History: None Reported Past Drug Use History: None Reported
[2023-04-20 16:49] LABS: Glucose,Whole Blood 329 mg/dL (70-110)
[2023-04-20 20:11] LABS: Glucose,Whole Blood 237 mg/dL (70-110)
[2023-04-20] MEDS: CALCIUM CARBONATE 500 MG CHEWABLE PO SCH (20:45)
[2023-04-20] MEDS: ENOXAPARIN 40 MG/0.4 ML SYRINGE SQ SCH (20:45)
[2023-04-20] MEDS: INSULIN DETEMIR (LEVEMIR) 100 UNIT/ML SYR SQ SCH (20:45)
[2023-04-21] MEDS: IPRATROPIUM-ALBUTEROL 3 ML NEB INHALATION SCH ×6 (02:05→21:27)
[2023-04-21 06:01] LABS: Glucose,Whole Blood 226 mg/dL (70-110)
[2023-04-21] MEDS: PANTOPRAZOLE 40 MG TABLET PO SCH (06:55)
[2023-04-21] MEDS: LEVOTHYROXINE 112 MCG TAB PO SCH (06:55)
[2023-04-21] MEDS: INSULIN ASPART (NovoLOG) 100 UNIT/ML VIAL SQ SCH ×3 (06:55→17:10)
[2023-04-21] MEDS: SODIUM CHLORIDE 0.9% 1,000 ML IV SCH ×3 (06:57→23:37)
[2023-04-21] MEDS: BUDESONIDE 1 MG/2 ML NEBU INHALATION SCH ×2 (07:35→21:27)
[2023-04-21] MEDS: lisinopriL 5 MG TAB PO SCH (08:18)
[2023-04-21] MEDS: EZETIMIBE 10 MG TAB PO SCH (08:18)
[2023-04-21] MEDS: methylPREDNISolone SOD SUCCI 40 MG/ML 1 ML VIAL IV SCH ×3 (08:18→23:37)
[2023-04-21] MEDS: LIOTHYRONINE SODIUM 5 MCG TAB PO SCH (08:19)
[2023-04-21] MEDS: PIOGLITAZONE 15 MG TAB PO SCH (08:19)
[2023-04-21] MEDS ORDERED: ACETAMINOPHEN TAB 500 MG TAB PO PRN (08:28)
[2023-04-21] MEDS: BENZOCAINE/MENTHOL LOZENG 1 EACH LOZENGE MUCOUS MEM PRN ×3 (10:08→21:22)
[2023-04-21 11:27] LABS: Glucose,Whole Blood 165 mg/dL (70-110)
--- NOTE | 2023-04-21 13:38 | P.PN ---
Progress Note - Text Progress Note Date: 04/21/23 Chief Complaint: Short of breath This is a pleasant 78-year-old patient follows a Dr. Eaton. Chronic stable medical conditions include diabetes, GERD, hypertension, hypothyroid. For about 4 days patient has started having respiratory symptoms. Tired. Cough. Yellow sputum. No dizziness lightheadedness. No diarrhea. No obvious fever and chills. also had some dyspnea symptoms. Decided to come in. Pulse ox was 89% on room air upon presentation. Tired Sitting up in a chair. 04/20/2023: Up in a chair. Some cough and shortness of breath. Some wheezing. Incentive spirometry. Have the patient ambulate in the room as tolerated. 04/21/2023: Did go to the bathroom. Some improvement in wheezing and shortness of breath. Eating better. Incentive spirometry. Requested the patient ambulate in the room as tolerated. Active Medications Acetaminophen (Acetaminophen Tab 500 Mg Tab) 500 mg PO Q6HR PRN PRN Reason: Fever and/ or Pain Last Admin: 04/21/23 10:08 Dose: 500 mg Albuterol/Ipratropium (Ipratropium-Albuterol 3 Ml Neb) 3 ml INHALATION RT-Q4H [facility] Last Admin: 04/21/23 12:39 Dose: 3 ml Benzocaine/Menthol (Benzocaine/Menthol Lozeng 1 Each Lozenge) 1 each MUCOUS MEM Q4HR PRN PRN Reason: Sore Throat Last Admin: 04/21/23 10:08 Dose: 1 each Budesonide (Budesonide 1 Mg/2 Ml Nebu) 1 mg INHALATION RT-BID [facility] Last Admin: 04/21/23 07:35 Dose: 1 mg Calcium Carbonate/Glycine (Calcium Carbonate 500 Mg Chewable) 500 mg PO HS [facility] Last Admin: 04/20/23 20:45 Dose: 500 mg Dextrose/Water (Dextrose 50% Syringe 50 Ml) 25 ml IVP PER PROTOCOL PRN; Protocol PRN Reason: Hypoglycemia Dextrose/Water (Dextrose 50% Syringe 50 Ml) 50 ml IVP PER PROTOCOL PRN; Protocol PRN Reason: Hypoglycemia Ezetimibe (Ezetimibe 10 Mg Tab) 10 mg PO DAILY [facility] Last Admin: 04/21/23 08:18 Dose: 10 mg Enoxaparin Sodium (Enoxaparin 40 Mg/0.4 Ml Syringe) 40 mg SQ [facility] Last Admin: 04/20/23 20:45 Dose: 40 mg Glipizide (Glipizide 2.5 Mg Tab) 2.5 mg PO AC-BID [facility] Last Admin: 04/21/23 06:55 Dose: 2.5 mg Sodium Chloride (Saline 0.9%) 1,000 mls @ 130 mls/hr IV .Q7H42M [facility] Last Admin: 04/21/23 06:57 Dose: 130 mls/hr Insulin Aspart (Insulin Aspart (Novolog) 100 Unit/Ml Vial) 0 unit SQ AC-TID [facility]; Protocol Last Admin: 04/21/23 12:17 Dose: 2 unit Insulin Detemir (Insulin Detemir (Levemir) 100 Unit/Ml Syr) 20 unit SQ [facility] Last Admin: 04/20/23 20:45 Dose: 20 unit Levothyroxine Sodium (Levothyroxine 112 Mcg Tab) 112 mcg PO DAILY@0630 [facility] Last Admin: 04/21/23 06:55 Dose: 112 mcg Liothyronine Sodium (Liothyronine Sodium 5 Mcg Tab) 5 mcg PO DAILY [facility] Last Admin: 04/21/23 08:19 Dose: 5 mcg Lisinopril (Lisinopril 5 Mg Tab) 5 mg PO DAILY [facility] Last Admin: 04/21/23 08:18 Dose: 5 mg Methylprednisolone Sodium Succinate (Methylprednisolone Sod Succi 40 Mg/Ml 1 Ml Vial) 40 mg IV Q8HR [facility] Last Admin: 04/21/23 08:18 Dose: 40 mg Naloxone HCl (Naloxone 0.4 Mg/Ml 1 Ml Vial) 0.2 mg IV Q2M PRN PRN Reason: Opioid Reversal Pantoprazole Sodium (Pantoprazole 40 Mg Tablet) 40 mg PO AC-BRKFST [facility] Last Admin: 04/21/23 06:55 Dose: 40 mg Pioglitazone HCl (Pioglitazone 15 Mg Tab) 15 mg PO DAILY [facility] Last Admin: 04/21/23 08:19 Dose: 15 mg Social history: No smoking and no alcohol. Lives with her and other family members. Physical examination: VITAL SIGNS: 98.2, 74, 18, 140/62, 97% on 3 L GENERAL: Up in a chair, a bit tired EYES: Pupils equal. Conjunctiva normal. HEENT: External appearance of nose and ears normal, oral cavity grossly normal. NECK: JVD not raised; masses not palpable. HEART: First and second heart sounds are normal; no edema. LUNGS:[ Respiratory rate increased, decreased breath sounds. Occasional crackle ABDOMEN: Soft, nontender, liver spleen not palpable, no masses palpable. PSYCH: Alert and oriented x3; mood and affect normal. MUSCULOSKELETAL:No Clubbing/cyanosis;muscles-grossly intact. OA INVESTIGATIONS, reviewed in the clinical context: 04/20/2023: White count 7.06 hemoglobin 11 platelets 194 potassium 4.6 BUN 24.6 creatinine 1.3 April 19: White count 9.6 hemoglobin 12.2 platelets 191 sodium 138 potassium 4.6 BUN 19 creatinine 1.07 Troponin I 0.019 proBNP 4820 RSV PCR: Detected EKG tracing personally reviewed by me-possibly wandering atrial pacemaker Chest x-ray film personally reviewed by me-no obvious infiltrate Assessment plan: -Acute RSV r infection causing possible pneumonitis, causing hypoxia -Secondary bronchospasm secondary to RSV infection and pneumonitis Bronchodilators. IV Solu-Medrol. -Acute hypoxic respiratory failure secondary to RSV infection On 3 L of oxygen. -Morbid obesity BMI 49.9 Weight loss measures -GERD Prilosec -Diabetes mellitus type 2 on oral hypoglycemic Glucotrol 2.5 mg twice a day Actos Lantus 20 units subcu daily at bedtime Sliding scale with Accu-Chek -Hyperlipidemia Zetia -Essential hypertension Zestril 5 mg daily -full Code Titrated on oxygen. Increase activity. Discussed with and daughter the bedside. Past Medical History Past Medical History: Diabetes Mellitus, GERD/Reflux, Hypertension, Thyroid Disorder Additional Past Medical History / Comment(s): UTI History of Any Multi-Drug Resistant Organisms: None Reported Past Surgical History: Cholecystectomy, Hysterectomy Additional Past Surgical History / Comment(s): thyroidectomy Past Psychological History: No Psychological Hx Reported Past Alcohol Use History: None Reported Past Drug Use History: None Reported
[2023-04-21 16:10] LABS: Glucose,Whole Blood 157 mg/dL (70-110)
[2023-04-21 20:40] LABS: Glucose,Whole Blood 150 mg/dL (70-110)
[2023-04-21] MEDS: INSULIN DETEMIR (LEVEMIR) 100 UNIT/ML SYR SQ SCH (21:21)
[2023-04-21] MEDS: ENOXAPARIN 30 MG/0.3 ML SYRINGE SQ SCH (21:22)
[2023-04-21] MEDS: CALCIUM CARBONATE 500 MG CHEWABLE PO SCH (21:22)
[2023-04-22 06:04] LABS: Glucose,Whole Blood 141 mg/dL (70-110)
[2023-04-22] MEDS: INSULIN ASPART (NovoLOG) 100 UNIT/ML VIAL SQ SCH ×3 (06:17→17:05)
[2023-04-22] MEDS: PANTOPRAZOLE 40 MG TABLET PO SCH (06:23)
[2023-04-22] MEDS: LEVOTHYROXINE 112 MCG TAB PO SCH (06:23)
[2023-04-22] MEDS: IPRATROPIUM-ALBUTEROL 3 ML NEB INHALATION SCH ×4 (07:35→22:34)
[2023-04-22] MEDS: BUDESONIDE 1 MG/2 ML NEBU INHALATION SCH ×2 (07:35→22:34)
[2023-04-22] MEDS: PIOGLITAZONE 15 MG TAB PO SCH (07:40)
[2023-04-22] MEDS: lisinopriL 5 MG TAB PO SCH (07:40)
[2023-04-22] MEDS: LIOTHYRONINE SODIUM 5 MCG TAB PO SCH (07:40)
[2023-04-22] MEDS: EZETIMIBE 10 MG TAB PO SCH (07:40)
[2023-04-22] MEDS: methylPREDNISolone SOD SUCCI 40 MG/ML 1 ML VIAL IV SCH ×3 (08:16→23:19)
[2023-04-22 11:12] LABS: Glucose,Whole Blood 244 mg/dL (70-110)
--- NOTE | 2023-04-22 13:45 | P.PN ---
Progress Note - Text Progress Note Date: 04/22/23 Chief Complaint: Short of breath This is a pleasant 78-year-old patient follows a Dr. Eaton. Chronic stable medical conditions include diabetes, GERD, hypertension, hypothyroid. For about 4 days patient has started having respiratory symptoms. Tired. Cough. Yellow sputum. No dizziness lightheadedness. No diarrhea. No obvious fever and chills. also had some dyspnea symptoms. Decided to come in. Pulse ox was 89% on room air upon presentation. Tired Sitting up in a chair. 04/20/2023: Up in a chair. Some cough and shortness of breath. Some wheezing. Incentive spirometry. Have the patient ambulate in the room as tolerated. 04/21/2023: Did go to the bathroom. Some improvement in wheezing and shortness of breath. Eating better. Incentive spirometry. Requested the patient ambulate in the room as tolerated. 04/22/2023: Some slight improvement in breathing. She tired. Started to ambulate. Oral intake fair. Probably watch for another 24 hours. Discussed with the patient and family at the bedside Cutback IV Solu-Medrol to 20 mg sonya ry 8. Active Medications Acetaminophen (Acetaminophen Tab 500 Mg Tab) 500 mg PO Q6HR PRN PRN Reason: Fever and/ or Pain Last Admin: 04/21/23 10:08 Dose: 500 mg Albuterol/Ipratropium (Ipratropium-Albuterol 3 Ml Neb) 3 ml INHALATION RT-QID [facility] Last Admin: 04/22/23 11:24 Dose: 3 ml Benzocaine/Menthol (Benzocaine/Menthol Lozeng 1 Each Lozenge) 1 each MUCOUS MEM Q4HR PRN PRN Reason: Sore Throat Last Admin: 04/21/23 21:22 Dose: 1 each Budesonide (Budesonide 1 Mg/2 Ml Nebu) 1 mg INHALATION RT-BID [facility] Last Admin: 04/22/23 07:35 Dose: 1 mg Calcium Carbonate/Glycine (Calcium Carbonate 500 Mg Chewable) 500 mg PO HS [facility] Last Admin: 04/21/23 21:22 Dose: 500 mg Dextrose/Water (Dextrose 50% Syringe 50 Ml) 25 ml IVP PER PROTOCOL PRN; Protocol PRN Reason: Hypoglycemia Dextrose/Water (Dextrose 50% Syringe 50 Ml) 50 ml IVP PER PROTOCOL PRN; Protocol PRN Reason: Hypoglycemia Ezetimibe (Ezetimibe 10 Mg Tab) 10 mg PO DAILY [facility] Last Admin: 04/22/23 07:40 Dose: 10 mg Enoxaparin Sodium (Enoxaparin 30 Mg/0.3 Ml Syringe) 30 mg SQ HS [facility] Last Admin: 04/21/23 21:22 Dose: 30 mg Glipizide (Glipizide 2.5 Mg Tab) 2.5 mg PO AC-BID [facility] Last Admin: 04/22/23 06:23 Dose: 2.5 mg Sodium Chloride (Saline 0.9%) 1,000 mls @ 130 mls/hr IV .Q7H42M [facility] Last Admin: 04/21/23 23:37 Dose: 130 mls/hr Insulin Aspart (Insulin Aspart (Novolog) 100 Unit/Ml Vial) 0 unit SQ AC-TID [facility]; Protocol Last Admin: 04/22/23 12:16 Dose: 4 unit Insulin Detemir (Insulin Detemir (Levemir) 100 Unit/Ml Syr) 20 unit SQ [facility] Last Admin: 04/21/23 21:21 Dose: 20 unit Levothyroxine Sodium (Levothyroxine 112 Mcg Tab) 112 mcg PO DAILY@0630 [facility] Last Admin: 04/22/23 06:23 Dose: 112 mcg Liothyronine Sodium (Liothyronine Sodium 5 Mcg Tab) 5 mcg PO DAILY [facility] Last Admin: 04/22/23 07:40 Dose: 5 mcg Lisinopril (Lisinopril 5 Mg Tab) 5 mg PO DAILY [facility] Last Admin: 04/22/23 07:40 Dose: 5 mg Methylprednisolone Sodium Succinate (Methylprednisolone Sod Succi 40 Mg/Ml 1 Ml Vial) 20 mg IV Q8HR [facility] Naloxone HCl (Naloxone 0.4 Mg/Ml 1 Ml Vial) 0.2 mg IV Q2M PRN PRN Reason: Opioid Reversal Pantoprazole Sodium (Pantoprazole 40 Mg Tablet) 40 mg PO AC-BRKFST [facility] Last Admin: 04/22/23 06:23 Dose: 40 mg Pioglitazone HCl (Pioglitazone 15 Mg Tab) 15 mg PO DAILY [facility] Last Admin: 04/22/23 07:40 Dose: 15 mg Social history: No smoking and no alcohol. Lives with her and other family members. Physical examination: VITAL SIGNS: 97.5, 75, 22, 169 with 75, 98% on 2 L GENERAL: Up in a chair, less tired EYES: Pupils equal. Conjunctiva normal. HEENT: External appearance of nose and ears normal, oral cavity grossly normal. NECK: JVD not raised; masses not palpable. HEART: First and second heart sounds are normal; no edema. LUNGS:[ Respiratory rate increased, decreased breath sounds. Some improvement in air entry ABDOMEN: Soft, nontender, liver spleen not palpable, no masses palpable. PSYCH: Alert and oriented x3; mood and affect normal. MUSCULOSKELETAL:No Clubbing/cyanosis;muscles-grossly intact. OA INVESTIGATIONS, reviewed in the clinical context: 04/20/2023: White count 7.06 hemoglobin 11 platelets 194 potassium 4.6 BUN 24.6 creatinine 1.3 April 19: White count 9.6 hemoglobin 12.2 platelets 191 sodium 138 potassium 4.6 BUN 19 creatinine 1.07 Troponin I 0.019 proBNP 4820 RSV PCR: Detected EKG tracing personally reviewed by me-possibly wandering atrial pacemaker Chest x-ray film personally reviewed by me-no obvious infiltrate Assessment plan: -Acute RSV r infection causing possible pneumonitis, causing hypoxia -Secondary bronchospasm secondary to RSV infection and pneumonitis: Some improvement Bronchodilators. IV Solu-Medrol. Cutback -Acute hypoxic respiratory failure secondary to RSV infection On 3 L of oxygen. -Morbid obesity BMI 49.9 Weight loss measures -GERD Prilosec -Diabetes mellitus type 2 on oral hypoglycemic Glucotrol 2.5 mg twice a day Actos Lantus 20 units subcu daily at bedtime Sliding scale with Accu-Chek -Hyperlipidemia Zetia -Essential hypertension Zestril 5 mg daily -full Code Continue current medications. Discussed. Increase activity. Past Medical History Past Medical History: Diabetes Mellitus, GERD/Reflux, Hypertension, Thyroid Disorder Additional Past Medical History / Comment(s): UTI History of Any Multi-Drug Resistant Organisms: None Reported Past Surgical History: Cholecystectomy, Hysterectomy Additional Past Surgical History / Comment(s): thyroidectomy Past Psychological History: No Psychological Hx Reported Past Alcohol Use History: None Reported Past Drug Use History: None Reported
[2023-04-22] MEDS: BENZOCAINE/MENTHOL LOZENG 1 EACH LOZENGE MUCOUS MEM PRN (16:35)
[2023-04-22 16:51] LABS: Glucose,Whole Blood 265 mg/dL (70-110)
[2023-04-22] MEDS: SODIUM CHLORIDE 0.9% 1,000 ML IV SCH ×2 (19:50→22:12)
[2023-04-22 21:22] LABS: Glucose,Whole Blood 239 mg/dL (70-110)
[2023-04-22] MEDS: INSULIN DETEMIR (LEVEMIR) 100 UNIT/ML SYR SQ SCH (22:11)
[2023-04-22] MEDS: CALCIUM CARBONATE 500 MG CHEWABLE PO SCH (22:12)
[2023-04-22] MEDS: ENOXAPARIN 30 MG/0.3 ML SYRINGE SQ SCH (22:12)
[2023-04-22 23:17] VITALS: RESP 18
[2023-04-23 06:02] LABS: Glucose,Whole Blood 197 mg/dL (70-110)
[2023-04-23] MEDS: PANTOPRAZOLE 40 MG TABLET PO SCH (06:46)
[2023-04-23] MEDS: LEVOTHYROXINE 112 MCG TAB PO SCH (06:46)
[2023-04-23] MEDS: INSULIN ASPART (NovoLOG) 100 UNIT/ML VIAL SQ SCH ×3 (06:46→12:39)
[2023-04-23] MEDS: SODIUM CHLORIDE 0.9% 1,000 ML IV SCH ×2 (06:46→12:39)
[2023-04-23] MEDS: IPRATROPIUM-ALBUTEROL 3 ML NEB INHALATION SCH ×2 (07:37→11:28)
[2023-04-23] MEDS: BUDESONIDE 1 MG/2 ML NEBU INHALATION SCH (07:37)
[2023-04-23 07:53] VITALS: PULSE 80
[2023-04-23 08:17] VITALS: BP 152/77; TEMP 97.6
[2023-04-23] MEDS ORDERED: predniSONE 20 MG TAB PO SCH (09:00)
[2023-04-23] MEDS: PIOGLITAZONE 15 MG TAB PO SCH (09:01)
[2023-04-23] MEDS: EZETIMIBE 10 MG TAB PO SCH (09:01)
[2023-04-23] MEDS: LIOTHYRONINE SODIUM 5 MCG TAB PO SCH (09:01)
[2023-04-23] MEDS: lisinopriL 5 MG TAB PO SCH (09:02)
[2023-04-23 11:43] LABS: Glucose,Whole Blood 167 mg/dL (70-110)
--- NOTE | 2023-04-23 15:16 | P.DS ---
Providers Date of admission: 04/19/23 16:14 Expected date of discharge: 04/23/23 Attending physician: Richie Perera Primary care physician: Andrew Eaton [facility] Course: Chief Complaint: Short of breath This is a pleasant 78-year-old patient follows a Dr. Eaton. Chronic stable medical conditions include diabetes, GERD, hypertension, hypothyroid. For about 4 days patient has started having respiratory symptoms. Tired. Cough. Yellow sputum. No dizziness lightheadedness. No diarrhea. No obvious fever and chills. also had some dyspnea symptoms. Decided to come in. Pulse ox was 89% on room air upon presentation. Tired Sitting up in a chair. 04/20/2023: Up in a chair. Some cough and shortness of breath. Some wheezing. Incentive spirometry. Have the patient ambulate in the room as tolerated. 04/21/2023: Did go to the bathroom. Some improvement in wheezing and shortness of breath. Eating better. Incentive spirometry. Requested the patient ambulate in the room as tolerated. 04/22/2023: Some slight improvement in breathing. She tired. Started to ambulate. Oral intake fair. Probably watch for another 24 hours. Discussed with the patient and family at the bedside Cutback IV Solu-Medrol to 20 mg every 8. 04/23/2023: Breathing better. Very keen to go home. We'll discharge in prednisone taper. Questions answered. Continue incentive spirometry. Discussion and discharge planning more than 35 minutes Social history: No smoking and no alcohol. Lives with her and other family members. Physical examination: VITAL SIGNS: 97.6, 18, 16, 152/77, 96% room air GENERAL: Up in a chair, doing better EYES: Pupils equal. Conjunctiva normal. HEENT: External appearance of nose and ears normal, oral cavity grossly normal. NECK: JVD not raised; masses not palpable. HEART: First and second heart sounds are normal; no edema. LUNGS:[ Respiratory rate normal, improvement in air entry ABDOMEN: Soft, nontender, liver spleen not palpable, no masses palpable. PSYCH: Alert and oriented x3; mood and affect normal. MUSCULOSKELETAL:No Clubbing/cyanosis;muscles-grossly intact. OA INVESTIGATIONS, reviewed in the clinical context: 04/20/2023: White count 7.06 hemoglobin 11 platelets 194 potassium 4.6 BUN 24.6 creatinine 1.3 April 19 24: White count 9.6 hemoglobin 12.2 platelets 191 sodium 138 potassium 4.6 BUN 19 creatinine 1.07 Troponin I 0.019 proBNP 4820 RSV PCR: Detected EKG tracing personally reviewed by me-possibly wandering atrial pacemaker Chest x-ray film personally reviewed by me-no obvious infiltrate Assessment plan: -Acute RSV r infection causing possible pneumonitis, causing hypoxia -Secondary bronchospasm secondary to RSV infection and pneumonitis: Better Bronchodilators. IV Solu-Medrol. Cutback Discharge on prednisone taper, albuterol taper. -Acute hypoxic respiratory failure secondary to RSV infection On 3 L of oxygen. -Morbid obesity BMI 49.9 Weight loss measures -GERD Prilosec -Diabetes mellitus type 2 on oral hypoglycemic Glucotrol 2.5 mg twice a day Actos Lantus 20 units subcu daily at bedtime Sliding scale with Accu-Chek -Hyperlipidemia Zetia -Essential hypertension Zestril 5 mg daily -full Code Disposition: Home Past Medical History Past Medical History: Diabetes Mellitus, GERD/Reflux, Hypertension, Thyroid Disorder Additional Past Medical History / Comment(s): UTI History of Any Multi-Drug Resistant Organisms: None Reported Past Surgical History: Cholecystectomy, Hysterectomy Additional Past Surgical History / Comment(s): thyroidectomy Past Psychological History: No Psychological Hx Reported Past Alcohol Use History: None Reported Past Drug Use History: None Reported Plan - Discharge Summary Discharge Rx Participant: Yes New Discharge Prescriptions: New Benzocaine/Menthol Lozeng [Cepacol lozenge] 1 each MUCOUS MEM Q4HR PRN lozenge PRN Reason: Sore Throat Albuterol Sulfate [Albuterol Sulfate Hfa] 1 puff PO Q4-6H #8.5 gm Continue Crenshaw-3 Fatty Acids/Fish Oil [Fish Oil 1,000 mg Softgel] 2 cap PO HS Meclizine [Antivert] 12.5 mg PO Q6H PRN PRN Reason: Vertigo Omeprazole [PriLOSEC] 20 mg PO DAILY glipiZIDE [Glucotrol] 2.5 mg PO BID Pioglitazone [Actos] 15 mg PO DAILY Levothyroxine Sodium [Synthroid] 112 mcg PO DAILY Liothyronine Sodium [Cytomel] 5 mcg PO DAILY Insulin Glargine,Hum.rec.anlog [Lantus Solostar Pen] 20 units SQ HS Cranberry Fruit Concentrate [Azo Cranberry] 500 mg PO HS Calcium Carbonate [Calcium] 600 mg PO HS lisinopriL [Zestril] 5 mg PO DAILY Ezetimibe [Zetia] 10 mg PO DAILY Discharge Medication List Meclizine [Antivert] 12.5 mg PO Q6H PRN 04/08/15 [History] Crenshaw-3 Fatty Acids/Fish Oil [Fish Oil 1,000 mg Softgel] 2 cap PO HS 04/08/15 [History] Omeprazole [PriLOSEC] 20 mg PO DAILY 04/08/15 [History] glipiZIDE [Glucotrol] 2.5 mg PO BID 04/08/15 [History] Calcium Carbonate [Calcium] 600 mg PO HS 04/19/23 [History] Cranberry Fruit Concentrate [Azo Cranberry] 500 mg PO HS 04/19/23 [History] Ezetimibe [Zetia] 10 mg PO DAILY 04/19/23 [History] Insulin Glargine,Hum.rec.anlog [Lantus Solostar Pen] 20 units SQ HS 04/19/23 [History] Levothyroxine Sodium [Synthroid] 112 mcg PO DAILY 04/19/23 [History] Liothyronine Sodium [Cytomel] 5 mcg PO DAILY 04/19/23 [History] Pioglitazone [Actos] 15 mg PO DAILY 04/19/23 [History] lisinopriL [Zestril] 5 mg PO DAILY 04/19/23 [History] Albuterol Sulfate [Albuterol Sulfate Hfa] 1 puff PO Q4-6H #8.5 gm 04/23/23 [Rx] Benzocaine/Menthol Lozeng [Cepacol lozenge] 1 each MUCOUS MEM Q4HR PRN lozenge 04/23/23 [Rx] Follow up Appointment(s)/Referral(s): Andrew Eaton DO [Primary Care Provider] - 1-2 days (office will call with appointment day and time) Patient Instructions/Handouts: Respiratory Syncytial Virus (DC) Discharge Disposition: HOME SELF-CARE
== END 2023-04-23 12:41 | disposition home or self-care (01) | DRG 193 ==
LOC: EC 10:45 → 4SSUR 16:14
PROVIDERS: ADMIT Hospitalist; ATTEND Hospitalist
DX: J12.1 Respiratory syncytial virus pneumonia (principal); J96.01 Acute respiratory failure with hypoxia; Z68.42 Body mass index [BMI] 45.0-49.9, adult; K21.9 Gastro-esophageal reflux disease without esophagitis; J98.01 Acute bronchospasm; E89.0 Postprocedural hypothyroidism; E66.01 Morbid (severe) obesity due to excess calories; E78.5 Hyperlipidemia, unspecified; E11.9 Type 2 diabetes mellitus without complications; I10 Essential (primary) hypertension; Z28.310 Unvaccinated for COVID-19; Z79.899 Other long term (current) drug therapy; Z79.890 Hormone replacement therapy; Z79.84 Long term (current) use of oral hypoglycemic drugs; Z79.4 Long term (current) use of insulin; Z87.440 Personal history of urinary (tract) infections; Z88.4 Allergy status to anesthetic agent; Z88.8 Allergy status to other drugs, medicaments and biological substances; Z88.1 Allergy status to other antibiotic agents; Z88.2 Allergy status to sulfonamides
CPT/HCPCS: 36415; 71046; 80048; 80053; 83880; 84484; 85025; 87636; 87651; 93005; 94640; 94760; 96360; 96372; 99285

== ENCOUNTER → 2023-05-25 | Outpatient (CLI) | payer MEDICARE ==
--- NOTE | 2023-05-25 18:18 | CA ---
Transthoracic Echo Report Name: Lianne Medley Age: 78 Gender: F : 1945 Exam Date: 05/25/2023 13:07 Exam Location: [place] Ht (in): 61 Wt (lb): 270 Ordering Physician: Andrew Eaton DO Attending/Referring Phys: Andrew Eaton DO [employer] Operator Batool Diaz RDCS Procedure CPT: Indications: R06.09 Other forms of dyspnea Cardiac Hx: Technical Quality: Fair Contrast 1: Total Dose (mL): Contrast 2: Total Dose (mL): MEASUREMENTS (Male / Female) Normal Values 2D ECHO LV Diastolic Diameter PLAX 4.0 cm 4.2 - 5.9 / 3.9 - 5.3 cm LV Systolic Diameter PLAX 1.8 cm IVS Diastolic Thickness 1.4 cm 0.6 - 1.0 / 0.6 - 0.9 cm LVPW Diastolic Thickness 1.1 cm 0.6 - 1.0 / 0.6 - 0.9 cm LV Relative Wall Thickness 0.6 LA Volume 113.9 cm??? 18 - 58 / 22 - 52 cm??? LA Volume Index 47.9 cm???/m??? 16 - 28 cm???/m??? M-MODE Aortic Root Diameter MM 2.6 cm LA Systolic Diameter MM 4.9 cm LA Ao Ratio MM 1.9 AV Cusp Separation MM 1.7 cm DOPPLER AV Peak Velocity 167.9 cm/s AV Peak Gradient 11.3 mmHg AV Mean Velocity 117.7 cm/s AV Mean Gradient 6.1 mmHg AV Velocity Time Integral 36.7 cm LVOT Peak Velocity 93.3 cm/s LVOT Peak Gradient 3.5 mmHg LVOT Velocity Time Integral 22.2 cm MV Area PHT 3.6 cm??? Mitral E Point Velocity 153.8 cm/s Mitral A Point Velocity 57.4 cm/s Mitral E to A Ratio 2.7 MV Deceleration Time 209.6 ms MV E' Velocity 8.8 cm/s Mitral E to MV E' Ratio 17.5 TR Peak Velocity 371.0 cm/s TR Peak Gradient 55.1 mmHg Right Ventricular Systolic Press 60.1 mmHg FINDINGS Left Ventricle Moderately increased left ventricular wall thickness. Left ventricular cavity size normal. No obvious regional wall motion abnormalities. Left ventricular ejection fraction is estimated at 55 to 60 %. Right Ventricle Normal right ventricular size and function. Moderate pulmonary hypertension. Right Atrium Mild right atrial dilatation. Left Atrium Severely increased left atrial volume. Mildly increased left atrial area. Mitral Valve Mitral valve thickened. Severe mitral annular calcification. [id number] mitral regurgitation. Aortic Valve No aortic valve stenosis or regurgitation. Tricuspid Valve Mild tricuspid regurgitation.structurally normal tricuspid valve. Pulmonic Valve Pulmonic valve not well visualized. Pericardium No pericardial effusion. Aorta Normal size aortic root and proximal ascending aorta. CONCLUSIONS 1. Normal left ventricular size and systolic function 2. Mild to moderate mitral and mild tricuspid regurgitation 3. Moderate pulmonary hypertension Previewed by: Dr. Ty Clancy MD (Electronically Signed) Final Date: 25 May 2023 18:18
== END | disposition home or self-care (01) ==
LOC: RADECHMAIN 12:55
PROVIDERS: ATTEND Family Medicine
DX: I27.20 Pulmonary hypertension, unspecified (principal); I34.0 Nonrheumatic mitral (valve) insufficiency; I36.1 Nonrheumatic tricuspid (valve) insufficiency; R06.09 Other forms of dyspnea
CPT/HCPCS: 93306

== ENCOUNTER → 2023-09-24 | Outpatient (CLI) | payer MEDICARE ==
[2023-09-25 02:31] LABS: HCT 39.6 % (37.2-46.3); HGB 11.9 g/dL (12.0-15.0); MCH 25.2 pg (27.0-32.0); MCHC 30.1 g/dL (32.0-37.0); MCV 83.7 FL (80.0-97.0); Mean Platelet Volume 11.2 FL (9.5-12.2); NRBC Per 100 WBC 0 X 10*3/uL (0.00-0.01); Platelet Count 259 X 10*3/uL (140-440); RBC 4.73 X 10*6/uL (4.10-5.20); RDW 17.9 % (11.5-14.5); WBC 10.03 X 10*3/uL (4.50-10.00)
[2023-09-25 03:18] LABS: ALT 14 U/L (8-44); AST 22 U/L (13-35); Albumin 3.9 g/dL (3.8-4.9); Alkaline Phosphatase 78 U/L (41-126); BUN/Creat Ratio 29.69 Ratio (12.00-20.00); Blood Urea Nitrogen 47.5 mg/dL (9.0-27.0); Calcium 9.8 mg/dL (8.7-10.3); Carbon Dioxide 24.3 mmol/L (21.6-31.8); Chloride 104 mmol/L (96-109); Glucose 99 mg/dL (70-110); Magnesium 1.9 mg/dL (1.5-2.4); Phosphorus 4.1 mg/dL (2.4-5.1); Potassium 5.3 mmol/L (3.5-5.5); Sodium 141 mmol/L (135-145); Total Bilirubin 0.6 mg/dL (0.3-1.2); Total Protein 6.9 g/dL (6.2-8.2)
[2023-09-25 03:44] LABS: Appearance,Urine Clear (Clear); Bilirubin,Urine Negative (Negative); Blood,Urine Negative (Negative); Color,Urine Yellow (Yellow); Ketones,Urine Negative (Negative); Nitrite,Urine Negative (Negative); Specific Gravity,Urine 1.016 (1.001-1.030); Urobilinogen,Urine 0.2 E.U./DL
[2023-09-25 03:55] LABS: Bacteria,Urine None Seen (None Seen)
[2023-09-25 04:16] LABS: Microalbumin Creatinine Ratio <14 mg/g Cr (0-30); Urine Creatinine 84.4 mg/dL (28.0-217.0)
== END | disposition home or self-care (01) ==
LOC: LABWHC1 16:27
PROVIDERS: ATTEND Family Medicine
DX: N18.30 Chronic kidney disease, stage 3 unspecified (principal)
CPT/HCPCS: 36415; 80053; 81001; 82043; 82570; 83735; 84100; 85027

== ENCOUNTER → 2023-09-24 | Outpatient (CLI) | payer MEDICARE ==
--- NOTE | 2023-09-24 17:07 | US ---
EXAMINATION TYPE: US kidneys/renal and bladder DATE OF EXAM: 09/24/2023 COMPARISON: Renal ultrasound 09/14/2021 CLINICAL INDICATION: Female, 78 years old with history of N18.30 CHRONIC KIDNEY DISEASE, STAGE 3 UNSP ECIFIED; 2021 EXAM MEASUREMENTS: Right Kidney: 9.3 x 4.9 x 3.8 cm Left Kidney: 10.1 x 4.5 x 3.8 cm Right Kidney: No hydronephrosis or masses seen Left Kidney: No hydronephrosis or masses seen Bladder: Patient declined to lay flat in order to obtain bladder images There is no evidence for hydronephrosis at this point in time. No nephrolithiasis is seen. Bilateral cortical thinning redemonstrated. No masses are identified. Patient declined to lie flat in order to obtain bladder images. IMPRESSION: 1. No ultrasound evidence for acute uropathy. Next and 2. Findings of chronic bilateral medical renal disease of the kidneys.
== END | disposition home or self-care (01) ==
LOC: RADUSWWP 16:08
PROVIDERS: ATTEND Family Medicine
DX: N18.30 Chronic kidney disease, stage 3 unspecified (principal)
CPT/HCPCS: 76770

== ENCOUNTER 2023-10-10 06:08 | Day surgery (SDC) | payer MEDICARE ==
[~2023-10-10 06:08] MED LIST: SODIUM CHLORIDE 0.9% 500 ML 500 ML IV SCH
[2023-10-10] MEDS ORDERED: LACTATED RINGERS 1,000 ML IV SCH (06:21)
[2023-10-10] MEDS ORDERED: LIDOCAINE 1% (10MG/ML) FOR IV START INTRADERMA PRN (06:21)
[2023-10-10 06:48] VITALS: RESP 16; TEMP 97.9
[2023-10-10 07:08] LABS: Glucose,Whole Blood 74 mg/dL (70-110)
[2023-10-10] MEDS: IV FLUID CONTINUATION 500 ML IV ONE (07:10)
[2023-10-10] MEDS ORDERED: LIDOCAINE 1% INJ 10MG/ML (20 ML MDV) ONE (07:25)
[2023-10-10] MEDS ORDERED: PROPOFOL 10 MG/ML 20 ML VIAL IV ONE (07:25)
[2023-10-10] MEDS: BENZOCAINE SPRAY 1 CAN TOPICAL ONE (07:34)
[2023-10-10 08:44] VITALS: BP 115/50; PULSE 63
--- NOTE | 2023-10-10 11:49 | P.TEE ---
Description of Procedure(s): Procedure performed: Transesophageal Echocardiogram with color flow doppler, pulsed wave doppler and continuous wave doppler Moderate conscious sedation: Moderate conscious sedation was supplied by anesthesia, see separate report. Complications: none Indications: Afib PROCEDURE: After the risks, benefits and alternatives of the above mentioned procedure was explained in detail with the patient, informed consent was obtained. Patient was brought to the lab in a fasting state. Patient was given sedation by anesthesia, see separate report. The throat was sprayed with Hurricane to anesthetize the throat. A lubricated Omni probe was then introduced into the esophagus and stomach and multiple views were obtained. 2D echo with color flow doppler, pulsed wave doppler and continuous wave doppler was utilized. Agitated saline bubbles were injected to assess for any intra- atrial shunt. The probe was then removed. There was LUCY thrombus noted and therefore no cardioversion was performed. Patient tolerated the procedure well. Patient was transferred to the post procedure area in stable and satisfactory condition. FINDINGS: 1. The aortic valve is tricuspid with fusion of the non coronary and left cusp with mild aortic stenosis. 2. The mitral valve appears be normal with mild to moderate mitral regurgitation. 3. Tricuspid valve appears to be normal with mild tricuspid regurgitation. 4. The interatrial septum is intact. No evidence of PFO. 5. Left atrial appendage has a thrombus. 6. Left ventricular EF 55% 7. Moderate to severe biatrial enlargement
== END 2023-10-10 08:54 | disposition home or self-care (01) ==
LOC: OR 06:08
PROVIDERS: ATTEND Internal Medicine
DX: I48.11 Longstanding persistent atrial fibrillation (principal); I11.0 Hypertensive heart disease with heart failure; I50.33 Acute on chronic diastolic (congestive) heart failure; I08.3 Combined rheumatic disorders of mitral, aortic and tricuspid valves; E11.69 Type 2 diabetes mellitus with other specified complication; E78.5 Hyperlipidemia, unspecified; E03.9 Hypothyroidism, unspecified; I27.20 Pulmonary hypertension, unspecified; K21.9 Gastro-esophageal reflux disease without esophagitis; Z88.2 Allergy status to sulfonamides; Z88.3 Allergy status to other anti-infective agents; Z88.8 Allergy status to other drugs, medicaments and biological substances; Z82.49 Family history of ischemic heart disease and other diseases of the circulatory system; Z79.84 Long term (current) use of oral hypoglycemic drugs; Z79.4 Long term (current) use of insulin; Z79.890 Hormone replacement therapy; Z79.51 Long term (current) use of inhaled steroids; Z79.01 Long term (current) use of anticoagulants; Z79.899 Other long term (current) drug therapy
CPT/HCPCS: 93312; 93320; 93325; J2001; J2704

== ENCOUNTER 2023-12-10 11:34 | Day surgery (SDC) | payer MEDICARE ==
[2023-12-10 12:23] LABS: Glucose,Whole Blood 70 mg/dL (70-110)
[2023-12-10] MEDS: LACTATED RINGERS 1,000 ML IV ONE (12:24)
[2023-12-10] MEDS ORDERED: PROPOFOL 10 MG/ML 20 ML VIAL IV ONE (12:55)
[2023-12-10] MEDS ORDERED: LIDOCAINE 1% INJ 10MG/ML (20 ML MDV) ONE (12:55)
[2023-12-10 13:23] VITALS: TEMP 98
[2023-12-10 13:45] VITALS: RESP 16
--- NOTE | 2023-12-10 14:05 | P.TEE ---
Description of Procedure(s): Procedure performed: Transesophageal Echocardiogram with color flow doppler, pulsed wave doppler and continuous wave doppler, synchronized cardioversion Moderate conscious sedation: Moderate conscious sedation was supplied by anesthesia, see separate report. Complications: none Indications: atrial fibrillation, history of left atrial appendage thrombus PROCEDURE: After the risks, benefits and alternatives of the above mentioned procedure was explained in detail with the patient, informed consent was obtained. Patient was brought to the lab in a fasting state. Patient was given sedation by anesthesia, see separate report. The throat was sprayed with Hurricane to anesthetize the throat. A lubricated Omni probe was then introduced into the esophagus and stomach and multiple views were obtained. 2D echo with color flow doppler, pulsed wave doppler and continuous wave doppler was utilized. The probe was then removed. There was no thrombus noted and therefore patient underwent synchronized cardioversion x 1 with 200J with resultant sinus rhythm. Patient tolerated the procedure well. Patient was transferred to the post procedure area in stable and satisfactory condition. FINDINGS: 1. The aortic valve is tricuspid with mild aortic stenosis 2. The mitral valve appears be normal with mild to moderate regurgitation. 3. Tricuspid valve appears to be normal with mild tricuspid regurgitation. 4. The interatrial septum is intact. 5. Left atrial appendage is free of clot. There is smoke however no thrombus. 6. Left ventricular EF 50-55%
[2023-12-10 14:48] VITALS: BP 147/63; PULSE 51
== END 2023-12-10 15:05 | disposition home or self-care (01) ==
LOC: OR 11:34
PROVIDERS: ATTEND Internal Medicine
DX: I08.1 Rheumatic disorders of both mitral and tricuspid valves (principal); I48.11 Longstanding persistent atrial fibrillation; I10 Essential (primary) hypertension; E78.5 Hyperlipidemia, unspecified; K21.9 Gastro-esophageal reflux disease without esophagitis; M19.90 Unspecified osteoarthritis, unspecified site; I49.9 Cardiac arrhythmia, unspecified; E07.9 Disorder of thyroid, unspecified; E11.9 Type 2 diabetes mellitus without complications; Z79.84 Long term (current) use of oral hypoglycemic drugs; Z79.899 Other long term (current) drug therapy; Z79.890 Hormone replacement therapy
CPT/HCPCS: 92960; 93312; 93320; 93325

== ENCOUNTER 2024-07-01 10:51 | Emergency (ER) | payer MEDICARE ==
--- NOTE | 2024-07-01 11:55 | ED ---
General Adult HPI - General Chief complaint: Shortness of Breath Stated complaint: SOB Time Seen by Provider: 07/01/24 11:14 Source: patient, family, RN notes reviewed Mode of arrival: wheelchair Limitations: no limitations - History of Present Illness Initial comments: 79-year-old female presents emerged from complaint of cough and cold-like symptoms. Patient states she has been sick over the last 5 days states that she noticed she had some shortness of breath with walking. She states that she noticed wheezing with increasing nasal congestion and productive cough. Patient states she is unsure what is going on but states that she was concerned because she had diagnosis of A-fib 6 months ago and is unsure what to expect. Patient denies any chest pain no current headache no reports of fever. No GI symptoms. - Related Data Home Medications Medication Instructions Recorded Confirmed glipiZIDE [Glucotrol] 2.5 mg PO BID 04/08/15 05/26/24 Calcium Carbonate [Calcium] 600 mg PO HS 04/19/23 05/26/24 Cranberry Fruit Concentrate [Azo 250 mg PO BID 04/19/23 05/26/24 Cranberry] Ezetimibe [Zetia] 10 mg PO DAILY 04/19/23 05/26/24 Insulin Glargine,Hum.rec.anlog 20 units SQ HS 04/19/23 05/26/24 [Lantus Solostar Pen] Liothyronine Sodium [Cytomel] 5 mcg PO DAILY 04/19/23 05/26/24 Pioglitazone [Actos] 15 mg PO DAILY 04/19/23 05/26/24 lisinopriL [Zestril] 5 mg PO DAILY 04/19/23 05/26/24 Levothyroxine Sodium [Euthyrox] 112 mcg PO DAILY 10/05/23 05/26/24 Rivaroxaban [Xarelto] 20 mg PO DAILY 10/05/23 05/26/24 Atorvastatin [Lipitor] 10 mg PO W/SUPPER 07/01/24 07/01/24 Dapagliflozin Propanediol [Farxiga] 10 mg PO W/BRKFST 07/01/24 07/01/24 Fish Oil/Dha/Epa [Fish Oil 1,200 2 cap PO W/SUPPER 07/01/24 07/01/24 mg Fish Oil] Meclizine [Antivert] 12.5 mg PO TID PRN 07/01/24 07/01/24 amLODIPine [Norvasc] 5 mg PO W/SUPPER 07/01/24 07/01/24 Previous Rx's Medication Instructions Recorded Albuterol Nebulized [Ventolin 2.5 mg INHALATION Q4H PRN #150 ml 07/01/24 Nebulized] Amoxic-Pot Clav 875-125Mg 1 tab PO Q12HR #20 tab 07/01/24 [Augmentin 875-125] predniSONE 50 mg PO DAILY #5 tab 07/01/24 Allergies Allergy/AdvReac Type Severity Reaction Status Date / Time cholecalciferol (vitamin D3) Allergy Unknown Verified 07/01/24 14:31 [From Vitamin D3] midazolam HCl [From Versed] Allergy Unknown Verified 07/01/24 14:31 apixaban [From Eliquis] AdvReac extreme Verified 07/01/24 14:31 gas and abd pain exenatide [From Byetta] AdvReac shaking Verified 07/01/24 14:31 phenazopyridine HCl AdvReac Nausea Verified 07/01/24 14:31 [From Pyridium] pioglitazone HCl [From Actos] AdvReac Nausea Verified 07/01/24 14:31 sitagliptin phosphate AdvReac high blood Verified 07/01/24 14:31 [From Januvia] pressure sulfamethoxazole AdvReac Nausea Verified 07/01/24 14:31 [From Bactrim] trimethoprim [From Bactrim] AdvReac Nausea Verified 07/01/24 14:31 Review of Systems ROS Statement: Those systems with pertinent positive or pertinent negative responses have been documented in the HPI. ROS Other: All systems not noted in ROS Statement are negative. Past Medical History Past Medical History: Atrial Fibrillation, Cancer, Diabetes Mellitus, GERD/R eflux, Hyperlipidemia, Hypertension, Thyroid Disorder Additional Past Medical History / Comment(s): hx of thyroid, uterine and basal cell. cancer. recent kidney testing. arthritis in knees. wears compression stocking for lymphedema prisca legs. History of Any Multi-Drug Resistant Organisms: None Reported Past Surgical History: Cholecystectomy, Hysterectomy Additional Past Surgical History / Comment(s): thyroidectomy, basal cell cancer removed, Bilateral cataract removal with lens implants Past Anesthesia/Blood Transfusion Reactions: No Reported Reaction Past Psychological History: No Psychological Hx Reported Smoking Status: Never smoker - Past Family History Mother Family Medical History: Asthma, Cancer Father Family Medical History: Coronary Artery Disease (CAD) General Exam Limitations: no limitations General appearance: alert, in no apparent distress Head exam: Present: atraumatic, normocephalic, normal inspection Eye exam: Present: normal appearance, PERRL, EOMI. Absent: scleral icterus, conjunctival injection, periorbital swelling ENT exam: Present: normal exam, normal oropharynx, mucous membranes moist Neck exam: Present: normal inspection, full ROM. Absent: tenderness, meningismus, lymphadenopathy Respiratory exam: Present: wheezes, rhonchi. Absent: normal lung sounds bilaterally, respiratory distress, rales, stridor Cardiovascular Exam: Present: irregular rhythm, normal heart sounds. Absent: regular rate, normal rhythm, tachycardia, systolic murmur, diastolic murmur, rubs, gallop, clicks Extremities exam: Absent: pedal edema Course Vital Signs 07/01/24 07/01/24 07/01/24 11:00 11:56 12:04 Temperature 98.1 F Pulse Rate 53 L 51 L 54 L Respiratory 22 18 18 Rate Blood Pressure 135/64 O2 Sat by Pulse 92 L Oximetry 07/01/24 13:15 Temperature Pulse Rate 56 L Respiratory 20 Rate Blood Pressure 140/56 O2 Sat by Pulse 95 Oximetry EKG Findings - EKG Comments: EKG Findings:: EKG performed at 11: 21 A-fib with rate of 46 QRS 92 QT/QTc 447/406 - EKG Results: EKG: interpreted by DIANE Medical Decision Making - Medical Decision Making Was pt. sent in by a medical professional or institution (, PA, INSTALLATION COORDINATOR, urgent care, hospital, or skilled nursing...) When possible be specific @ -No Did you speak to anyone other than the patient for history (EMS, parent, family, police, friend...)? What history was obtained from this source @ -No Did you review nursing and triage notes (agree or disagree)? Why? @ -I reviewed and agree with nursing and triage notes Were old charts reviewed (outside hosp., previous admission, EMS record, old EKG, old radiological studies, urgent care reports/EKG's, skilled nursing records)? Report findings @ -No old charts were reviewed Differential Diagnosis (chest pain, altered mental status, abdominal pain women, abdominal pain men, vaginal bleeding, weakness, fever, dyspnea, syncope, headache, dizziness, GI bleed, back pain, seizure, CVA, palpatations, mental health, musculoskeletal)? @ -Differential Dyspnea: Coronary syndrome, arrhythmia, tamponade, asthma, COPD, pulmonary embolism, pneumonia, pneumothorax, pulmonary effusion, anaphylaxis, diabetic ketoacidosis, flailed chest, pulmonary contusion, diaphragmatic rupture, anemia, neuromuscular, this is not meant to be an all-inclusive list. EKG interpreted by me (3pts min.). @ -As above X-rays interpreted by me (1pt min.). @ -Chest x-ray shows no definite infiltrate, mild perihilar changes CT interpreted by me (1pt min.). @ -None done U/S interpreted by me (1pt. min.). @ -None done What testing was considered but not performed or refused? (CT, X-rays, U/S, labs)? Why? @ -None What meds were considered but not given or refused? Why? @ -None Did you discuss the management of the patient with other professionals (pro fessionals i.e. , PA, INSTALLATION COORDINATOR, lab, RT, psych nurse, forensic social worker, nurse educator, teacher, booking police officer, transplant case manager)? Give summary @ -No Was smoking cessation discussed for >3mins.? @ -No Was critical care preformed (if so, how long)? @ -No Were there social determinants of health that impacted care today? How? (Homelessness, low income, unemployed, alcoholism, drug addiction, transportation, low edu. Level, literacy, decrease access to med. care, [facility], rehab)? @ -No Was there de-escalation of care discussed even if they declined (Discuss DNR or withdrawal of care, Hospice)? DNR status @ -No What co-morbidities impacted this encounter? (DM, HTN, Smoking, COPD, CAD, Cancer, CVA, ARF, Chemo, Hep., AIDS, mental health diagnosis, sleep apnea, morbid obesity)? @ -None Was patient admitted / discharged? Hospital course, mention meds given and route, prescriptions, significant lab abnormalities, going to OR and other pertinent info. @ -[Charge patient states that she feels great improved after DuoNeb treatment. Patient's wheezing has resolved. Patient had negative viral swab otherwise stable labs. Patient spoke with discharged on antibiotics steroids and breathing treatments. Undiagnosed new problem with uncertain prognosis? @ -No Drug Therapy requiring intensive monitoring for toxicity (Heparin, Nitro, Insulin, Cardizem)? @ -No Were any procedures done? @ -No Diagnosis/symptom? @ -Acute tracheobronchitis with bronchospasm Acute, or Chronic, or Acute on Chronic? @ -Acute Uncomplicated (without systemic symptoms) or Complicated (systemic symptoms)? @ -[Uncomplicated Side effects of treatment? @ -No Exacerbation, Progression, or Severe Exacerbation? @ -No Poses a threat to life or bodily function? How? (Chest pain, [place], [place], pneumonia, PE, COPD, DKA, ARF, appy, cholecystitis, CVA, Diverticulitis, Homicidal, Suicidal, threat to staff... and all critical care pts) @ -No - Lab Data Result diagrams: 07/01/24 11:42 07/01/24 12:54 Lab Results 07/01/24 07/01/24 07/01/24 Range/Units 11:42 11:42 11:42 WBC 8.7 (3.8-10.6) k/uL RBC 5.04 (3.80-5.40) m/uL Hgb 13.9 (11.4-16.0) gm/dL Hct 47.0 H (34.0-46.0) % MCV 93.1 (80.0-100.0) fL MCH 27.5 (25.0-35.0) pg MCHC 29.6 L (31.0-37.0) g/dL RDW 17.7 H (11.5-15.5) % Plt Count 155 (150-450) k/uL MPV 9.0 Neutrophils % 77 % Lymphocytes % 9 % Monocytes % 7 % Eosinophils % 3 % Basophils % 0 % Neutrophils # 6.8 (1.3-7.7) k/uL Lymphocytes # 0.7 L (1.0-4.8) k/uL Monocytes # 0.6 (0-1.0) k/uL Eosinophils # 0.3 (0-0.7) k/uL Basophils # 0.0 (0-0.2) k/uL Hypochromasia Marked Anisocytosis Slight PT 13.2 H (10.0-12.5) sec INR 1.2 H (<1.2) APTT 26.4 (22.0-30.0) sec Sodium (137-145) mmol/L Potassium (3.5-5.1) mmol/L Chloride (98-107) mmol/L Carbon Dioxide (22-30) mmol/L Anion Gap mmol/L BUN (7-17) mg/dL Creatinine (0.52-1.04) mg/dL Est GFR (CKD-EPI)AfAm (>60 ml/min/1.73 sqM) Est GFR (CKD-EPI)NonAf (>60 ml/min/1.73 sqM) Glucose (74-99) mg/dL Plasma Lactic Acid Bhavik 1.5 (0.7-2.0) mmol/L Calcium (8.4-10.2) mg/dL Magnesium (1.6-2.3) mg/dL Total Bilirubin (0.2-1.3) mg/dL AST (14-36) U/L ALT (4-34) U/L Alkaline Phosphatase (38-126) U/L Troponin I (0.000-0.034) ng/mL NT-Pro-B Natriuret Pep pg/mL Total Protein (6.3-8.2) g/dL Albumin (3.5-5.0) g/dL Influenza Type A (PCR) (Not Detectd) Influenza Type B (PCR) (Not Detectd) RSV (PCR) (Not Detectd) SARS-CoV-2 (PCR) (Not Detectd) 07/01/24 07/01/24 07/01/24 Range/Units 11:42 11:42 12:54 WBC (3.8-10.6) k/uL RBC (3.80-5.40) m/uL Hgb (11.4-16.0) gm/dL Hct (34.0-46.0) % MCV (80.0-100.0) fL MCH (25.0-35.0) pg MCHC (31.0-37.0) g/dL RDW (11.5-15.5) % Plt Count (150-450) k/uL MPV Neutrophils % % Lymphocytes % % Monocytes % % Eosinophils % % Basophils % % Neutrophils # (1.3-7.7) k/uL Lymphocytes # (1.0-4.8) k/uL Monocytes # (0-1.0) k/uL Eosinophils # (0-0.7) k/uL Basophils # (0-0.2) k/uL Hypochromasia Anisocytosis PT (10.0-12.5) sec INR (<1.2) APTT (22.0-30.0) sec Sodium 139 (137-145) mmol/L Potassium 4.9 (3.5-5.1) mmol/L Chloride 105 (98-107) mmol/L Carbon Dioxide 24 (22-30) mmol/L Anion Gap 10 mmol/L BUN 27 H (7-17) mg/dL Creatinine 1.47 H (0.52-1.04) mg/dL Est GFR (CKD-EPI)AfAm 39 (>60 ml/min/1.73 sqM) Est GFR (CKD-EPI)NonAf 34 (>60 ml/min/1.73 sqM) Glucose 86 (74-99) mg/dL Plasma Lactic Acid Bhavik (0.7-2.0) mmol/L Calcium 9.1 (8.4-10.2) mg/dL Magnesium 2.0 (1.6-2.3) mg/dL Total Bilirubin 1.0 (0.2-1.3) mg/dL AST 32 (14-36) U/L ALT 23 (4-34) U/L Alkaline Phosphatase 94 (38-126) U/L Troponin I <0.012 (0.000-0.034) ng/mL NT-Pro-B Natriuret Pep 5080 pg/mL Total Protein 7.0 (6.3-8.2) g/dL Albumin 3.9 (3.5-5.0) g/dL Influenza Type A (PCR) Not Detected (Not Detectd) Influenza Type B (PCR) Not Detected (Not Detectd) RSV (PCR) Not Detected (Not Detectd) SARS-CoV-2 (PCR) Not Detected (Not Detectd) Disposition Clinical Impression: Acute tracheobronchitis, Acute bronchospasm Disposition: HOME SELF-CARE Condition: Stable Instructions (If sedation given, give patient instructions): Bronchospasm (ED), Acute Bronchitis (ED) Additional Instructions: Please return to the Emergency Department if symptoms worsen or any other concerns. Prescriptions: Amoxic-Pot Clav 875-125Mg [Augmentin 875-125] 1 tab PO Q12HR #20 tab predniSONE 50 mg PO DAILY #5 tab Albuterol Nebulized [Ventolin Nebulized] 2.5 mg INHALATION Q4H PRN #150 ml PRN Reason: difficulty in breathing Is patient prescribed a controlled substance at d/c from ED?: No Referrals: Andrew Eaton DO [Primary Care Provider] - 1-2 days Time of Disposition: 15:12
[2024-07-01] MEDS: methylPREDNISolone SOD SUCCI 125 MG/2 ML VIAL IV STA (11:56)
[2024-07-01] MEDS: IPRATROPIUM-ALBUTEROL 3 ML NEB INHALATION STA (11:56)
--- NOTE | 2024-07-01 12:10 | XR ---
EXAMINATION TYPE: XR chest 2V DATE OF EXAM: 07/01/2024 11:57 AM COMPARISON: Chest radiographs from 04/19/2023 CLINICAL INDICATION: Female, 79 years old with history of difficulty breathing; TECHNIQUE: XR chest 2V Frontal and lateral views of the chest. FINDINGS: Lungs/Pleura: There is flattening of the diaphragm with increased lucency of the lungs. No evidence o f pneumothorax, pleural effusion or focal consolidation. Pulmonary vascularity: Unremarkable. Heart/mediastinum: Cardiomediastinal silhouette is unremarkable. Musculoskeletal: No acute osseous pathology. Other findings: None IMPRESSION: 1. No acute cardiopulmonary disease process. 2. COPD changes. [facility], , 07/01/2024 12:08 PM
[2024-07-01 12:15] LABS: INR 1.2 (<1.2); Partial Thromboplastin Time 26.4 sec (22.0-30.0); Prothrombin Time 13.2 sec (10.0-12.5)
[2024-07-01 12:24] LABS: Anisocytosis Slight; Basophils % (A) 0 %; Eosinophils # (A) 0.3 k/uL (0-0.7); Eosinophils % (A) 3 %; HGB 13.9 gm/dL (11.4-16.0); Hypochromasia Marked; Lymphocytes # (A) 0.7 k/uL (1.0-4.8); Lymphocytes % (A) 9 %; MCH 27.5 pg (25.0-35.0); MCHC 29.6 g/dL (31.0-37.0); MCV 93.1 fL (80.0-100.0); Monocytes # (A) 0.6 k/uL (0-1.0); Monocytes % (A) 7 %; Neutrophils # (A) 6.8 k/uL (1.3-7.7); Neutrophils % (A) 77 %; Platelet Count 155 k/uL (150-450); RBC 5.04 m/uL (3.80-5.40); RDW 17.7 % (11.5-15.5); WBC 8.7 k/uL (3.8-10.6)
[2024-07-01 12:42] LABS: Influenza A Not Detected (Not Detectd); Influenza B Not Detected (Not Detectd); RSV Not Detected (Not Detectd)
[2024-07-01 13:17] VITALS: RESP 20
[2024-07-01 13:27] LABS: ALT 23 U/L (4-34); AST 32 U/L (14-36); African American GFR (CKD) 39 (>60 ml/min/1.73 sqM); Albumin 3.9 g/dL (3.5-5.0); Alkaline Phosphatase 94 U/L (38-126); Anion Gap 10 mmol/L; Blood Urea Nitrogen 27 mg/dL (7-17); Calcium 9.1 mg/dL (8.4-10.2); Carbon Dioxide 24 mmol/L (22-30); Chloride 105 mmol/L (98-107); Glucose 86 mg/dL (74-99); Non-African American GFR(CKD) 34 (>60 ml/min/1.73 sqM); Potassium 4.9 mmol/L (3.5-5.1); Sodium 139 mmol/L (137-145)
[2024-07-01 13:35] LABS: NT-Pro-B-Type Natriuretic Pept 5080 pg/mL
[2024-07-01 15:19] VITALS: BP 177/84; PULSE 87; TEMP 97.6
== END 2024-07-01 15:27 | disposition home or self-care (01) ==
LOC: EC 10:51
DX: J20.9 Acute bronchitis, unspecified (principal); Z88.1 Allergy status to other antibiotic agents; Z88.2 Allergy status to sulfonamides; Z88.8 Allergy status to other drugs, medicaments and biological substances
CPT/HCPCS: 36415; 94640; 93005; 83880; 80053; 83605; 83735; 84484; 85025; 85610; 85730; 87636; 71046; 99285; 96374; J2919